=== PATIENT | male | born 1960 | race Caucasian/White ===

== ENCOUNTER 2016-10-03 19:21 | Emergency (ER) | payer OTHER ==
[~2016-10-03] VITALS: Ht 172.7 cm; Wt 130.0 kg
[~2016-10-03 19:21] MED LIST: ATOR80TA PO; CLIN1CAP6 PO; COUM10TA PO; GABA300C3 PO; LISI5 PO; NITR0.4S SL; PERC5TAB12 PO
[2016-10-03 19:25] VITALS: BP 137/95; PULSE 80; RESP 16; TEMP 96.7; O2SAT 96
[2016-10-03] MEDS ORDERED: IBUPROFEN 800 MG TAB PO ONE (21:45)
--- NOTE | 2016-10-03 21:48 | PD ---
HPI Chief Complaint: Fall Time Seen by Provider: 21:47 Travel History International Travel<30 days: No Contact w/Intl Traveler<30days: No Traveled to known affect area: No History of Present Illness HPI 55-year-old white male presents to emergency department for evaluation of a fall. The patient states that he was stepping down off a step stool last evening when he lost his balance falling back striking his head. He also states that he injured his right foot. He denies syncope. No nausea vomiting. No neck or back pain. No visual changes. He states that the pain is mild but becomes more severe when he attempts to bear weight on his right foot. PFSH Past Medical History Hx Anticoagulant Therapy: No Arthritis: No Asthma: Yes ( A CHILD) Anxiety: No Depression: No Heart Rhythm Problems: Yes (AFIB) Cancer: Yes (TESTICULAR) Cardiac Catheterization: Yes Cardiovascular Problems: Yes (MD x 3. AF. 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) Immunizations Current: No Migraines: No Myocardial Infarction: Yes (X3) Renal Failure: No Seizures: No Ulcer: No Tetanus Vaccination: > 5 Years Influenza Vaccination: Yes Past Surgical History Abdominal Surgery: No Appendectomy: Yes Body Medical Devices: AKIRA FILTER Cardiac Surgery: Yes Coronary Stent: Yes (X3) Ear Surgery: No Endocrine Surgery: No Eye Surgery: No Genitourinary Surgery: Yes (TESTICULAR CA-REMOVED R) Neurologic Surgery: No Oral Surgery: No Thoracic Surgery: Yes (IVC FILTER) Tonsillectomy: Yes Other Surgery: Yes (IVC FILTER) Family History Family Myocardial Infarction: No Social History Alcohol Use: Yes (OCCASIONAL) Tobacco Use: No Substance Use: No Allergies-Medications (Allergen,Severity, Reaction): Coded Allergies: Penicillin (Verified Allergy, Severe, 10/03/16) *MDRO Multi-Drug Resistant Organism (Verified Adverse Reaction, Unknown, ) 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 - 01/10/16 Reported Meds & Prescriptions Reported Meds & Active Scripts Active Lortab (Hydrocodone-Acetaminophen) 5-325 Mg Tab 1 Tab PO Q8HR PRN Percocet 5-325 mg (Oxycodone/Acetaminophen) 1 Tab 1-2 Tab PO Q6H PRN Prinivil 5 mg (Lisinopril) 5 Mg Tab 5 Mg PO DAILY 30 Days Reported Gabapentin 300 Mg Cap 300 Mg PO TID Coumadin 10 mg (Warfarin Sodium) Warfarin Sodium 10 mg Tab 10 Mg PO MOWEFR@16 Atorvastatin 80 mg (Atorvastatin Calcium) 80 Mg Tab 80 Mg PO HS Review of Systems Except as stated in HPI: all other systems reviewed are Neg Physical Exam Narrative GENERAL: Well-developed, well-nourished in no apparent distress. Nontoxic appearing. HEAD: Normocephalic, patient has abrasion to the right posterior occiput. EYES: Pupils equal round and reactive. Extraocular motions intact. No scleral icterus. No injection or drainage. ENT: Nose clear. Throat without erythema, tonsillar hypertrophy or exudate. Uvula midline. Airway patent. NECK: Trachea midline. Supple, nontender, moves head freely. No central bony tenderness or spasm. CARDIOVASCULAR: Regular rate and rhythm without murmurs, gallops, or rubs. RESPIRATORY: Clear to auscultation. Breath sounds equal bilaterally. No wheezes , rales, or rhonchi. GASTROINTESTINAL: Abdomen soft, non-tender, nondistended. No hepato-splenomegaly , or palpable masses. No guarding. EXTREMITIES: No clubbing, cyanosis, or edema. Examination of right lower extremity reveals pain to the anterior proximal forefoot. No pain in the distal forefoot. No pain in the toes, heel, Achilles, ankle. He has intact sensation with good distal pulses. No pain in the knee or hip. The left lower extremity as well as the upper extremities are without localizing bony tenderness or deformity. BACK: Nontender without deformity. No flank tenderness. NEUROLOGICAL: Awake, alert and oriented x 3 .Cranial nerves grossly intact. Motor and sensory grossly within normal limits. Normal speech. Data Data Last Documented VS Vital Signs Date Time Temp Pulse Resp B/P Pulse Ox O2 Delivery O2 Flow Rate FiO2 10/03/16 21:39 16 10/03/16 19:25 96.7 80 137/95 96 Room Air Orders Foot, Complete ([id number]) (10/03/16 21:45) Crutches (10/03/16 21:45) Ibuprofen (Motrin) (10/03/16 21:45) Ct Brain W/O Iv Contrast(Rout) (10/03/16 21:48) Splint Or Brace Apply/Monitor (10/03/16 22:28) Acetamin-Hydrocod 325-5 Mg ([place] 5-325 (10/03/16 22:30) MDM Medical Decision Making Medical Screen Exam Complete: Yes Emergency Medical Condition: Yes Medical Record Reviewed: Yes Interpretation(s) Last [address] 10/03/162147 Signed Impressions: Service Date/Time: Monday, October 03, 2016 22:10 - CONCLUSION: No acute disease. Gregorio Nolen MD Foot X-Ray 10/03/162144 Signed Impressions: Service Date/Time: Monday, October 03, 2016 21:54 - CONCLUSION: 1. No acute bony injury seen. 2. Calcaneal spur. Gregorio Nolen MD Differential Diagnosis MDM: High Differential diagnoses: Fracture, sprain, strain, dislocation, contusion, neurovascular injury Narrative Course X-ray of the right foot is negative for trauma. CT scan of the brain is negative for trauma. Patient is given Lortab 5 a grams by mouth, Porter wrap and crutches. Icepack applied. This is right ankle sprain, head contusion, fall Diagnosis Primary Impression: Head contusion Qualified Code: S00.03XA - Contusion of scalp, initial encounter Additional Impressions: Right ankle sprain Qualified Code: S93.421A - Sprain of deltoid ligament of right ankle, initial encounter Fall Qualified Code: W19.XXXA - Fall, initial encounter Patient Instructions: Narcotic given in the ED, General Instructions Additional Instructions: Rest. Elevation. Ice packs for the next 3 days. Porter wrap and crutches. No weight-bearing and then progress to weight-bearing as tolerated. Medications as directed Follow-up with an orthopedist or your doctor in one week. Return to the ER if any problems Med/Other Pt SpecificInfo: Prescription(s) given Scripts Hydrocodone-Acetaminophen (Lortab)5-325 Mg Tab1 Tab PO Q8HR PRN (PAIN) #20 TAB Prov:Janelle Leiva MD 10/03/16 Disposition: 01 DISCHARGE HOME Condition: Jann Ivory Oct 03, 2016 21:48
--- NOTE | 2016-10-03 22:18 | RADRPT ---
EXAM DATE/TIME: 10/03/2016 21:54 [facility] COMPARISON: No previous studies available for comparison. INDICATIONS : Right foot pain post fall yesterday. MEDICAL HISTORY : None. SURGICAL HISTORY : None. ENCOUNTER: Initial ACUITY: 1 day PAIN SCORE: 5/10 LOCATION: Right foot. FINDINGS: Three view examination of the right foot demonstrates no soft tissue swelling, dislocation, or fractu re. The tarsal bones appear intact. The interphalangeal and metatarsophalangeal joints are intact. The calcaneus is intact. There is a prominent calcaneal spur at the plantar aponeurosis attachment site. Bony mineralization is normal. CONCLUSION: 1. No acute bony injury seen. 2. Calcaneal spur. Gregorio Nolen MD on October 03, 2016 at 22:15 Board Certified Radiologist. This report was verified electronically.
--- NOTE | 2016-10-03 22:19 | RADRPT ---
EXAM DATE/TIME: 10/03/2016 22:10 [facility] COMPARISON: No previous studies available for comparison. INDICATIONS : Fall and hit head. RADIATION DOSE: 49.19 CTDIvol (mGy) MEDICAL HISTORY : None SURGICAL HISTORY : None. ENCOUNTER: Initial ACUITY: 1 day PAIN SCALE: 6/10 LOCATION: cranial TECHNIQUE: Multiple contiguous axial images were obtained of the head. Using automated exposure control and adj ustment of the mA and/or kV according to patient size, radiation dose was kept as low as reasonably a chievable to obtain optimal diagnostic quality images. FINDINGS: CEREBRUM: The ventricles are normal for age. No evidence of midline shift, mass lesion, hemorrhage or acute in farction. No extra-axial fluid collections are seen. POSTERIOR FOSSA: The cerebellum and brainstem are intact. The 4th ventricle is midline. The cerebellopontine angle i s unremarkable. EXTRACRANIAL: The visualized portion of the orbits is intact. SKULL: The calvaria is intact. No evidence of skull fracture. CONCLUSION: No acute disease. Gregorio Nolen MD on October 03, 2016 at 22:16 Board Certified Radiologist. This report was verified electronically.
[2016-10-03] MEDS ORDERED: HYDR-3533 PO (22:28)
[2016-10-03] MEDS ORDERED: ACETAMINOPHEN/HYDROcodone 325 MG/5 MG TAB PO ONE (22:30)
== END 2016-10-03 23:12 | disposition home or self-care (01) ==
LOC: NEPB 19:21
DX: S00.93XA Contusion of unspecified part of head, initial encounter (principal); S93.401A Sprain of unspecified ligament of right ankle, initial encounter; I48.91 Unspecified atrial fibrillation; I10 Essential (primary) hypertension; E11.9 Type 2 diabetes mellitus without complications; W10.8XXA Fall (on) (from) other stairs and steps, initial encounter
CPT/HCPCS: 70450; 73630; 99284; E0113

== ENCOUNTER 2016-11-13 13:57 | Inpatient (IN) | payer OTHER, MEDICARE ==
[~2016-11-13] VITALS: Ht 172.7 cm; Wt 125.1 kg
[~2016-11-13 13:57] MED LIST changes: -CLIN1CAP6 PO; +HYDR-3533 PO; -NITR0.4S SL
[2016-11-13 14:04] VITALS: BP 167/94; PULSE 99; RESP 18; TEMP 97.8; O2SAT 96
--- NOTE | 2016-11-13 16:22 | PD ---
HPI Chief Complaint: Skin Problem Time Seen by Provider: 16:16 Travel History International Travel<30 days: No Contact w/Intl Traveler<30days: No Traveled to known affect area: No History of Present Illness HPI Patient is a 56-year-old male presenting to emergency for evaluation of left lower leg skin lesions as well as skin changes to his groin and right hip and buttock. Patient states that his leg broke out 2 days ago. He reports issues with chronic ulcerations which he reports he usually can take care of himself however this is not significantly worse. He reports that he broke out on his right buttock and groin around the same time. He reports joint pain and just generally not feeling well. He denies any fever, chills, chest pain, shortness of breath, abdominal pain. He reports a femur fracture in 2000 and since that time he's had problems with his left leg. He also reports recently being diagnosed with type 2 diabetes but is not currently taking any medications. He also reports a history of DVT status post IVC filter placement several years ago. His primary care provider is Dr. Alexandra Polo. [facility] Past Medical History Hx Anticoagulant Therapy: No Arthritis: No Asthma: Yes ( A CHILD) Atrial Fibrillation: Yes Anxiety: No Depression: No Cancer: Yes (TESTICULAR) Cardiac Catheterization: Yes High Cholesterol: Yes Chemotherapy: No Chest Pain: Yes Congestive Heart Failure: No Cerebrovascular Accident: No Coronary Artery Disease: Yes Diabetes: Yes Diminished Hearing: No Deep Vein Thrombosis: Yes (MULTIPLE LLE; LAST ONE 2014) Endocrine: No Gastrointestinal Disorders: No GERD: No Genitourinary: No Hiatal Hernia: No Hypertension: Yes Immune Disorder: No Inguinal Hernia: Yes Implanted Vascular Access Dvce: Yes Kidney Stones: No Musculoskeletal: Yes (SCIATIC NERVE) Neurologic: No Psychiatric: No Reproductive: No Integumentary: Yes (H/O MRSA TO LLE) Immunizations Current: No Migraines: No Myocardial Infarction: Yes (X3) Renal Failure: No Seizures: No Ulcer: No Past Surgical History Abdominal Surgery: No Appendectomy: Yes Body Medical Devices: AKIRA FILTER Coronary Stent: Yes (X3) Ear Surgery: No Endocrine Surgery: No Eye Surgery: No Genitourinary Surgery: Yes (TESTICULAR CA-REMOVED R) Neurologic Surgery: No Oral Surgery: No Tonsillectomy: Yes Social History Alcohol Use: Yes (OCCASIONAL) Tobacco Use: No Substance Use: No Allergies-Medications (Allergen,Severity, Reaction): Coded Allergies: Penicillin (Verified Allergy, Severe, 11/13/16) *MDRO Multi-Drug Resistant Organism (Verified Adverse Reaction, Unknown, ) 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 - 01/10/16 Reported Meds & Prescriptions Reported Meds & Active Scripts Active Reported Lisinopril 5 Mg Tab 5 Mg PO DAILY Warfarin 10 Mg Tab 10 Mg PO DAILY Gabapentin 300 Mg Cap 300 Mg PO TID Atorvastatin (Atorvastatin Calcium) 80 Mg Tab 80 Mg PO HS Review of Systems Except as stated in HPI: all other systems reviewed are Neg General / Constitutional: No: Fever, Chills HENT: No: Headaches Cardiovascular: Positive: Edema, No: Chest Pain or Discomfort Respiratory: No: Shortness of Breath Gastrointestinal: No: Nausea, Vomiting, Abdominal Pain Musculoskeletal: Positive: Myalgias, Arthralgias, Limited ROM, Edema, Pain Skin: Positive Rash, Positive Itching, Positive Change in Pigmentation, Positive Lesions Neurologic: No: Dizziness, Syncope, Focal Abnormalities Physical Exam Narrative GENERAL: Obese, well-developed, alert male. Appears older than stated age. Resting comfortably in no acute distress. SKIN: Warm and dry. Superficial lesions to left lower leg, no exudate noted. Erythema noted with moderate edema. Patient has well demarcated, hyperpigmented rash to abdominal fold/groin as well as right hip and buttock. HEAD: Atraumatic. Normocephalic. EYES: Pupils equal and round. No scleral icterus. No injection or drainage. ENT: No nasal bleeding or discharge. Mucous membranes pink and moist. NECK: Trachea midline. No JVD. CARDIOVASCULAR: Regular rate and rhythm. No murmur appreciated. RESPIRATORY: No accessory muscle use. Clear to auscultation. Breath sounds equal bilaterally. GASTROINTESTINAL: Abdomen obese, soft, non-tender, nondistended. Hepatic and splenic margins not palpable. MUSCULOSKELETAL: No obvious deformities. No clubbing. No cyanosis. Edema to left lower extremity. NEUROLOGICAL: Awake and alert. No obvious cranial nerve deficits. Motor grossly within normal limits. Normal speech. PSYCHIATRIC: Appropriate mood and affect; insight and judgment normal. Data Data Last Documented VS Vital Signs Date Time Temp Pulse Resp B/P Pulse Ox O2 Delivery O2 Flow Rate FiO2 11/13/16 19:36 90 18 158/78 96 Room Air 11/13/16 14:04 97.8 Orders Wound Culture And Gram Stain (11/13/16 16:08) Complete Blood Count With Diff (11/13/16 16:08) Comprehensive Metabolic Panel (11/13/16 16:08) Prothrombin Time / Inr (Pt) (11/13/16 16:08) Act Partial Throm Time (Ptt) (11/13/16 16:08) Lactic Acid Sepsis Protocol (11/13/16 16:08) Blood Culture (11/13/16 16:08) Us Leg Venous Doppler (11/13/16 ) Vancomycin Inj (Vancomycin Inj) (11/13/16 18:30) Tibia/Fibula (Ap/Lat) (11/13/16 ) Admit Order (Ed Use Only) (11/13/16 19:47) Admit To Inpatient (11/13/16 ) Vital Signs (Adult) Q4H (11/13/16 19:46) Activity Oob Ad Nelly (11/13/16 19:46) Bedside Glucose VERONICA.AC&HS (11/13/16 19:46) Intake + Output VERONICA.QSHIFT (11/13/16 19:46) Diet 1800 Ada Cons Carb (11/14/16 Breakfast) Sodium Chloride 0.9% Flush (Ns Flush) (11/13/16 20:00) Sodium Chloride 0.9% Flush (Ns Flush) (11/13/16 21:00) Acetaminophen (Tylenol) (11/13/16 20:00) Ondansetron Inj (Zofran Inj) (11/13/16 20:00) Magnesium Hydroxide Liq (Milk Of Magnesi (11/13/16 20:00) Sennosides (Senokot) (11/13/16 20:00) Basic Metabolic Panel (Bmp) (11/14/16 06:00) Complete Blood Count With Diff (11/14/16 06:00) Case Management Consult (11/13/16 19:46) Naloxone Inj (Narcan Inj) (11/13/16 20:00) Inpatient Certification (11/13/16 ) Vancomycin Consult Pharmacy (Vancomycin (11/13/16 20:00) Labs Laboratory Tests Test 11/13/16 16:20 White Blood Count 6.4 TH/MM3 Red Blood Count 4.15 MIL/MM3 Hemoglobin 14.2 GM/DL Hematocrit 40.6 % Mean Corpuscular Volume 97.8 FL Mean Corpuscular Hemoglobin 34.1 PG Mean Corpuscular Hemoglobin 34.9 % Concent Red Cell Distribution Width 14.4 % Platelet Count 197 TH/MM3 Mean Platelet Volume 8.2 FL Neutrophils (%) (Auto) 68.0 % Lymphocytes (%) (Auto) 21.3 % Monocytes (%) (Auto) 6.1 % Eosinophils (%) (Auto) 3.3 % Basophils (%) (Auto) 1.3 % Neutrophils # (Auto) 4.3 TH/MM3 Lymphocytes # (Auto) 1.4 TH/MM3 Monocytes # (Auto) 0.4 TH/MM3 Eosinophils # (Auto) 0.2 TH/MM3 Basophils # (Auto) 0.1 TH/MM3 CBC Comment DIFF FINAL Differential Comment Prothrombin Time 10.7 SEC Prothromb Time International 1.0 RATIO Ratio Activated Partial 25.6 SEC Thromboplast Time Sodium Level 139 MEQ/L Potassium Level 3.9 MEQ/L Chloride Level 103 MEQ/L Carbon Dioxide Level 26.6 MEQ/L Anion Gap 9 MEQ/L Blood Urea Nitrogen 6 MG/DL Creatinine 0.94 MG/DL Estimat Glomerular Filtration 84 ML/MIN Rate Random Glucose 84 MG/DL Lactic Acid Level 1.5 mmol/L Calcium Level 8.6 MG/DL Total Bilirubin 0.4 MG/DL Aspartate Amino Transf 25 U/L (AST/SGOT) Alanine Aminotransferase 36 U/L (ALT/SGPT) Alkaline Phosphatase 93 U/L Total Protein 7.9 GM/DL Albumin 3.3 GM/DL MDM Medical Decision Making Medical Screen Exam Complete: Yes Emergency Medical Condition: Yes Interpretation(s) Vital Signs Date Time Temp Pulse Resp B/P Pulse Ox O2 Delivery O2 Flow Rate FiO2 11/13/16 14:04 97.8 99 18 167/94 96 Differential Diagnosis Cellulitis versus DVT versus psoriasis versus eczema versus tinea corporis versus sepsis versus other Narrative Course Patient is a 56-year-old male presenting to the emergency department for evaluation of left lower leg swelling, lesions and erythema as well as a rash to his groin and right leg and buttock. Wound culture obtained. Labs and imaging ordered. Workup initiated in triage, care of patient will be transferred to a provider when a medical bed is available. Thuy Eden [facility] Nov 13, 2016 16:22
[2016-11-13 16:33] LABS: AUTOMATED NEUTROPHIL # 4.3 TH/MM3 (1.8-7.7); BASOPHIL # 0.1 TH/MM3 (0-0.2); BASOPHIL % 1.3 % (0.0-2.0); EOSINOPHIL # 0.2 TH/MM3 (0-0.4); EOSINOPHIL % 3.3 % (0.0-4.0); HEMATOCRIT 40.6 % (39.0-51.0); HEMO FLAGS DIFF FINAL; LYMPH % 21.3 % (9.0-44.0); LYMPHOCYTE # 1.4 TH/MM3 (1.0-4.8); MEAN CELL VOLUME 97.8 FL (80.0-100.0); MEAN CORPUSCULAR HEMOGLOBIN 34.1 PG (27.0-34.0); MEAN CORPUSCULAR HGB CONC 34.9 % (32.0-36.0); MONO % 6.1 % (0.0-8.0); PLATELET COUNT 197 TH/MM3 (150-450); RED BLOOD COUNT 4.15 MIL/MM3 (4.50-5.90); RED CELL DISTRIBUTION WIDTH 14.4 % (11.6-17.2); WHITE BLOOD COUNT 6.4 TH/MM3 (4.0-11.0)
[2016-11-13 17:03] LABS: ALT (GPT) 36 U/L (12-78); ANION GAP 9 MEQ/L (5-15); AST (GOT) 25 U/L (15-37); BICARBONATE 26.6 MEQ/L (21.0-32.0); BLOOD UREA NITROGEN 6 MG/DL (7-18); CHLORIDE 103 MEQ/L (98-107); GLOMERULAR FILTRATION RATE 84 ML/MIN (>89); POTASSIUM 3.9 MEQ/L (3.5-5.1); SODIUM (NA) 139 MEQ/L (136-145)
[2016-11-13 17:04] LABS: ALKALINE PHOSPHATASE 93 U/L (45-117); TOTAL BILIRUBIN ADULT 0.4 MG/DL (0.2-1.0)
[2016-11-13 17:05] LABS: APTT (PATIENT) 25.6 SEC (24.3-30.1); PROTHROMBIN TIME - PATIENT 10.7 SEC (9.8-11.6)
[2016-11-13 18:25] VITALS: BP 156/90; PULSE 80; RESP 18; O2SAT 98
[2016-11-13] MEDS ORDERED: LISI-519 PO (18:25)
[2016-11-13] MEDS ORDERED: GABA300C5 PO (18:25)
[2016-11-13] MEDS ORDERED: WARF-22 PO (18:25)
[2016-11-13] MEDS ORDERED: ATOR1TAB18 PO (18:25)
[2016-11-13] MEDS ORDERED: VANCOMYCIN INJ 1,000 MG in SODIUM CHLOR 0.9% 250 ML INJ 250 ML IV ONE (18:30)
--- NOTE | 2016-11-13 18:33 | RADRPT ---
EXAM DATE/TIME: 11/13/2016 17:13 [facility] COMPARISON: US LEG LEFT VENOUS DOPPLER, April 05, 2015, 12:26. INDICATIONS : Left leg swelling and pain. MEDICAL HISTORY : Hypercholesterolemia. Deep venous thrombosis. Hypertension. Myocardial infarction x 3. Coronary ar lynnette disease. Afib. Asthma. Inguinal hernia. Diabetes. Testicular cancer. MRSA. SURGICAL HISTORY : Coronary artery stent. Tonsillectomy. Appendectomy. Right testicle removal. Left femur fracture repa ir. Left rotator cuff repair. IVC filter. ENCOUNTER: Subsequent ACUITY: >1 year PAIN SCORE: 6/10 LOCATION: Left leg. TECHNIQUE: Venous ultrasound of the leg was performed from the inguinal ligament to the proximal calf. Real-bebe e, color Doppler and spectral tracing, compression and augmentation techniques were used. FINDINGS: There is normal compressibility of the deep venous system from the inguinal region to the proximal ca lf. No echogenic clot is seen in the lumen of the common femoral, femoral, popliteal, and posterior tibial veins. There is a normal response of the venous system to proximal and distal augmentation an d respiration. There is edema in the soft tissues. CONCLUSION: No evidence of DVT. Asaf Trotter MD on November 13, 2016 at 18:32 Board Certified Radiologist. This report was verified electronically.
--- NOTE | 2016-11-13 19:16 | RADRPT ---
EXAM DATE/TIME: 11/13/2016 19:07 [facility] COMPARISON: No previous studies available for comparison. INDICATIONS : Left lower leg inflammation with seeping wound. MEDICAL HISTORY : Hypercholesterolemia. Deep venous thrombosis. Hypertension. Myocardial infarction x 3. Coronary a rtery disease. Afib. Asthma. Inguinal hernia. Diabetes. Testicular cancer. MRSA. SURGICAL HISTORY : Coronary artery stent. Tonsillectomy. Appendectomy. Right testicle removal. Left femur fracture repai r. Left rotator cuff repair. IVC filter. ENCOUNTER: Initial ACUITY: 2 days PAIN SCORE: 7/10 LOCATION: Left tib/fib FINDINGS: Two view examination of the left tibia demonstrates no evidence of fracture or dislocation. Bony min eralization is normal. The soft tissue structures are intact. CONCLUSION: No definite bony fracture or joint dislocation. Asaf Trotter MD on November 13, 2016 at 19:15 Board Certified Radiologist. This report was verified electronically.
--- NOTE | 2016-11-13 19:20 | PD ---
Data Data Last Documented VS Vital Signs Date Time Temp Pulse Resp B/P Pulse Ox O2 Delivery O2 Flow Rate FiO2 11/13/16 18:25 82 18 11/13/16 18:25 156/90 98 Room Air 11/13/16 14:04 97.8 Orders Wound Culture And Gram Stain (11/13/16 16:08) Complete Blood Count With Diff (11/13/16 16:08) Comprehensive Metabolic Panel (11/13/16 16:08) Prothrombin Time / Inr (Pt) (11/13/16 16:08) Act Partial Throm Time (Ptt) (11/13/16 16:08) Lactic Acid Sepsis Protocol (11/13/16 16:08) Blood Culture (11/13/16 16:08) Us Leg Venous Doppler (11/13/16 ) Vancomycin Inj (Vancomycin Inj) (11/13/16 18:30) Tibia/Fibula (Ap/Lat) (11/13/16 ) Labs Laboratory Tests Test 11/13/16 16:20 White Blood Count 6.4 TH/MM3 Red Blood Count 4.15 MIL/MM3 Hemoglobin 14.2 GM/DL Hematocrit 40.6 % Mean Corpuscular Volume 97.8 FL Mean Corpuscular Hemoglobin 34.1 PG Mean Corpuscular Hemoglobin 34.9 % Concent Red Cell Distribution Width 14.4 % Platelet Count 197 TH/MM3 Mean Platelet Volume 8.2 FL Neutrophils (%) (Auto) 68.0 % Lymphocytes (%) (Auto) 21.3 % Monocytes (%) (Auto) 6.1 % Eosinophils (%) (Auto) 3.3 % Basophils (%) (Auto) 1.3 % Neutrophils # (Auto) 4.3 TH/MM3 Lymphocytes # (Auto) 1.4 TH/MM3 Monocytes # (Auto) 0.4 TH/MM3 Eosinophils # (Auto) 0.2 TH/MM3 Basophils # (Auto) 0.1 TH/MM3 CBC Comment DIFF FINAL Differential Comment Prothrombin Time 10.7 SEC Prothromb Time International 1.0 RATIO Ratio Activated Partial 25.6 SEC Thromboplast Time Sodium Level 139 MEQ/L Potassium Level 3.9 MEQ/L Chloride Level 103 MEQ/L Carbon Dioxide Level 26.6 MEQ/L Anion Gap 9 MEQ/L Blood Urea Nitrogen 6 MG/DL Creatinine 0.94 MG/DL Estimat Glomerular Filtration 84 ML/MIN Rate Random Glucose 84 MG/DL Lactic Acid Level 1.5 mmol/L Calcium Level 8.6 MG/DL Total Bilirubin 0.4 MG/DL Aspartate Amino Transf 25 U/L (AST/SGOT) Alanine Aminotransferase 36 U/L (ALT/SGPT) Alkaline Phosphatase 93 U/L Total Protein 7.9 GM/DL Albumin 3.3 GM/DL MDM Supervised Visit with ALEXUS: Yes Narrative Course The patient was initially evaluated in triage by the PA and brought back to my pod a few hours after initial assessment. See her note for further details. Briefly this is a 56-year-old male with history of diabetes who presents for evaluation of left leg pain, swelling, redness, and ulcerations. The patient also reports right buttocks ulcerations, redness, and pain. Patient reports similar episodes in the past with MRSA. He denies IVDU. Pain is moderate, constant, worse with movement and palpation. CBC is unremarkable. CMP is unremarkable. Lactic acid is 1.5. Left lower extremity duplex is negative for DVT. Left tib-fib x-ray shows no free air. On physical exam the patient has significant edema to the left lower extremity with a large area of superficial ulceration surrounding by warmth and erythema as well as red streaks going up his left leg. Patient has small areas of ulcerations to his right buttocks which are surrounded by warmth and erythema as well. Given the extent of the patient's left leg infection as well as lymphangitis, he'll be admitted for IV antibiotic therapy. Case discussed with hospitalist Dr. Dick who will admit the patient to his service. Diagnosis Primary Impression: Left leg cellulitis Additional Impression: Diabetic foot infection Admitting Information Admitting Physician Requests: Admit Baldomero Quiñones MD Nov 13, 2016 19:20
[2016-11-13 19:36] VITALS: BP 158/78; PULSE 90; RESP 18; O2SAT 96
[2016-11-13] MEDS ORDERED: NALOXONE HCL 0.4 MG/ML AMP IV PRN (20:00)
[2016-11-13] MEDS ORDERED: SENNOSIDES 8.6 MG TAB PO PRN (20:00)
[2016-11-13] MEDS ORDERED: SODIUM CHLORIDE 0.9% FLUSH 5 ML FLUSH FLUSH PRN (20:00)
[2016-11-13] MEDS ORDERED: ONDANSETRON HCL 4 MG/2 ML VIAL IVP PRN (20:00)
[2016-11-13] MEDS ORDERED: MAGNESIUM HYDROXIDE SUSP 30 ML CUP PO PRN (20:00)
[2016-11-13] MEDS ORDERED: Vancomycin Consult Pharmacy 1 EA OTHER SCH (20:00)
[2016-11-13] MEDS ORDERED: ACETAMINOPHEN 325 MG TAB PO PRN (20:00)
[2016-11-13] MEDS ORDERED: VANCOMYCIN 1,000 MG/NS 250 ML IV ONE ×2 (20:15)
[2016-11-13 21:00] VITALS: BP 138/83; PULSE 85; RESP 16; TEMP 97.5; O2SAT 97
[2016-11-13] MEDS: SODIUM CHLORIDE 0.9% FLUSH 5 ML FLUSH FLUSH SCH (22:03)
--- NOTE | 2016-11-13 22:27 | HHI.HP ---
[facility] Service [facility] Primary Care Physician Non-Staff Admission Diagnosis left leg cellulitis, diabetic foot wound Diagnoses: Chief Complaint: Left leg edema, pain and redness Travel History International Travel<30 Days: No Contact w/Intl Traveler <30 Da: No Traveled to Known Affected Are: No History of Present Illness 56-year-old male with a history of questionable diabetes, hypertension, HI 3, CAD, A. fib, asthma and testicular cancer presented to the ED with complaints of left lower extremity edema, pain and redness since Sunday. Patient states his left leg is always bigger than his right ever since his femur surgery in 2000 but states it has increased and he began having open wounds on Sunday, draining fluid, and is causing him severe pain when ambulating. He is also complaining of a rash on his right groin that extends across his right thigh onto his right buttock that also began on Sunday, denies any itching. He states he does have chills but is unsure if he has had a fever. He denies any chest pain, short of breath, nausea or vomiting. Review of Systems Constitutional: COMPLAINS OF: Fever, Chills Eyes: DENIES: Blurred vision Respiratory: DENIES: Cough, Sputum production, Shortness of breath Cardiovascular: COMPLAINS OF: Lower Extremity Edema, DENIES: Chest pain, Dyspnea on Exertion Gastrointestinal: DENIES: Constipation, Diarrhea, Nausea, Vomiting Genitourinary: DENIES: Hematuria, Dysuria Musculoskeletal: COMPLAINS OF: Joint pain, DENIES: Back pain, Neck pain Integumentary: COMPLAINS OF: Rash, DENIES: Pruritus Hematologic/lymphatic: COMPLAINS OF: Lymphadenopathy Neurologic: DENIES: Headache, Localized weakness Past Family Social History Past Medical History Questionable diabetes Hypertension HI 3 CAD A. 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 - 01/10/16 Active Ordered Medications Current Medications Medications (Trade) Dose Ordered Sig/Maranda Route Start Time Stop Time Status Last Admin (NS Flush) 2 ml UNSCH PRN FLUSH 11/13/16 20:00 (NS Flush) 2 ml BID FLUSH 11/13/16 21:00 11/13/16 22:03 (Tylenol) 650 mg Q4H PRN PO 11/13/16 20:00 (Zofran Inj) 4 mg Q6H PRN IVP 11/13/16 20:00 (Milk Of Magnesia Liq) 30 ml Q12H PRN PO 11/13/16 20:00 (Senokot) 17.2 mg Q12H PRN PO 11/13/16 20:00 Naloxone HCl 0.4 mg 0.4 mg UNSCH PRN IV 11/13/16 20:00 Pharmacy Profile Note 0 ml @ 0 mls/hr UNSCH OTHER 11/13/16 20:00 (Vancomycin Inj/ NS 500 ml Inj) 517.5 ml @ 250 mls/hr Q12H IV 11/14/16 06:00 Miscellaneous Information SPECIFIC LAB TO BE ... ONCE ONCE XX 11/15/16 17:45 11/15/16 17:46 Family History Patient denies any family history of medical conditions including cardiac disease or diabetes. Social History Tobacco use: Denies Alcohol use: Socially Illicit drug use: Denies Physical Exam Vital Signs Vital Signs Date Time Temp Pulse Resp B/P Pulse Ox O2 Delivery O2 Flow Rate FiO2 11/13/16 21:00 97.5 85 16 138/83 97 11/13/16 19:36 90 18 158/78 96 Room Air 11/13/16 18:25 82 18 11/13/16 18:25 80 18 156/90 98 Room Air 11/13/16 14:04 97.8 99 18 167/94 96 Physical Exam GENERAL: This is a well-nourished, well-developed patient, in no apparent distress. SKIN: Left lower extremity edematous with open ulcers and erythema. Right groin /thigh and buttock excoriated fungal rash. HEAD: Atraumatic. Normocephalic. No temporal or scalp tenderness. EYES: Pupils equal round and reactive. Extraocular motions intact. ENT: Nose without bleeding, purulent drainage or septal hematoma. Airway patent. NECK: Trachea midline. No JVD CARDIOVASCULAR: Regular rate and rhythm without murmurs, gallops, or rubs. RESPIRATORY: Clear to auscultation. Breath sounds equal bilaterally. No wheezes , rales, or rhonchi. GASTROINTESTINAL: Abdomen soft, non-tender, nondistended. No hepato-splenomegaly , or palpable masses. No guarding. MUSCULOSKELETAL: Left lower extremity edematous. No calf tenderness. NEUROLOGICAL: Awake and alert. Motor and sensory grossly within normal limits. Normal speech. Laboratory Laboratory Tests Test 11/13/16 16:20 White Blood Count 6.4 Red Blood Count 4.15 Hemoglobin 14.2 Hematocrit 40.6 Mean Corpuscular Volume 97.8 Mean Corpuscular Hemoglobin 34.1 Mean Corpuscular Hemoglobin 34.9 Concent Red Cell Distribution Width 14.4 Platelet Count 197 Mean Platelet Volume 8.2 Neutrophils (%) (Auto) 68.0 Lymphocytes (%) (Auto) 21.3 Monocytes (%) (Auto) 6.1 Eosinophils (%) (Auto) 3.3 Basophils (%) (Auto) 1.3 Neutrophils # (Auto) 4.3 Lymphocytes # (Auto) 1.4 Monocytes # (Auto) 0.4 Eosinophils # (Auto) 0.2 Basophils # (Auto) 0.1 CBC Comment DIFF FINAL Differential Comment Prothrombin Time 10.7 Prothromb Time International 1.0 Ratio Activated Partial 25.6 Thromboplast Time Sodium Level 139 Potassium Level 3.9 Chloride Level 103 Carbon Dioxide Level 26.6 Anion Gap 9 Blood Urea Nitrogen 6 Creatinine 0.94 Estimat Glomerular Filtration 84 Rate Random Glucose 84 Lactic Acid Level 1.5 Calcium Level 8.6 Total Bilirubin 0.4 Aspartate Amino Transf 25 (AST/SGOT) Alanine Aminotransferase 36 (ALT/SGPT) Alkaline Phosphatase 93 Total Protein 7.9 Albumin 3.3 Date/Time Procedure Status Source Growth 11/13/16 16:20 Gram Stain Received Wound Leg Pending 11/13/16 16:20 Wound Culture Received Wound Leg Pending 11/13/16 16:20 Aerobic Blood Culture Received Blood Peripheral Pending 11/13/16 16:20 Anaerobic Blood Culture Received Blood Peripheral Pending Result Diagram: 11/13/16 1620 11/13/16 1620 Imaging Last Impressions Tibia/Fibula X-Ray 11/13/16 0000 Signed Impressions: Service Date/Time: Sunday, November 13, 2016 19:07 - CONCLUSION: No definite bony fracture or joint dislocation. Asaf Trotter MD Assessment and Plan Problem List: (1) Cellulitis ICD Code: L03.90 Status: Chronic (2) Atrial fibrillation, chronic ICD Code: I48.2 Status: Acute (3) Hypertension ICD Code: I10 Status: Chronic (4) Tinea corporis ICD Code: B35.4 Status: Acute Assessment and Plan 56-year-old male with a history of questionable diabetes, hypertension, HI 3, CAD, A. fib and testicular cancer presented to the ED with: Cellulitis, left lower extremity Images reviewed: Tib-fib x-ray shows no acute fracture, lower extremity ultrasound negative for DVT -Vancomycin IV with pharmacy consult for dosing -Contact isolation for history of MRSA -Wound and blood culture pending -Pain management with [place] and IV Morphine -Consult Wound care -Consult ID Tinea corporis: extensive involvement of the right groin/thigh and right buttock -Itraconazole PO daily -Keep area clean and dry Hypertension, chronic -Monitor vitals -Reorder home medications lisinopril -Heart healthy diet A. fib, chronic -Monitor telemetry -Continue home medications: Coumadin Questionable diabetes, rule out Labs: Blood glucose 84 -Check A1c -Accu-Cheks AC/HS DVT prophylaxis: Coumadin Written by Zoraida FAN, acting as scribe for Dr. Dick on 11/13/16 at 2143. All or portions of this note were transcribed by scribMITA Ziegler. I, Dr. Modesto Dick personally performed the history, physical exam, and medical decision making; and confirmed the accuracy of the information in the transcribed note. Authenticated by Dr. Modesto Dick on 11/14/16 at 02:03. Code Status Full Discussed Condition With Patient and RN Physician Certification 2 Midnight Certification Type: Admission for Inpatient Services Order for Inpatient Services The services are ordered in accordance with Medicare regulations or non- Medicare payer requirements, as applicable. In the case of services not specified as inpatient-only, they are appropriately provided as inpatient services in accordance with the 2-midnight benchmark. Estimated LOS (days): 3 days is the estimated time the patient will need to remain in the hospital, assuming treatment plan goals are met and no additional complications. Post-Hospital Plan: Not yet determined Zoraida Slade Nov 13, 2016 22:27 Modesto Dick MD Nov 14, 2016 02:00
[2016-11-13] MEDS ORDERED: MORPHINE SULFATE 4 MG/ML INJ IV PUSH PRN (22:45)
[2016-11-13] MEDS: ATORVASTATIN 80 MG TAB PO SCH (22:54)
[2016-11-13] MEDS: ACETAMINOPHEN/HYDROcodone 325 MG/10 MG TAB PO PRN (22:54)
[2016-11-13] MEDS ORDERED: DO NOT ADM ANY ANTICOAGULANT DRUGS XX PRN (23:00)
[2016-11-14] VITALS (9 sets, daily range): BP systolic 114–137; BP diastolic 59–76; PULSE 73–94; RESP 18–24; TEMP 97.7–98.7; O2SAT 93–96
[2016-11-14] MEDS: ACETAMINOPHEN/HYDROcodone 325 MG/10 MG TAB PO PRN ×3 (06:07→18:32)
[2016-11-14] MEDS: VANCOMYCIN INJ 1,750 MG in SODIUM CHLORID 0.9% 500 ML INJ 500 ML IV SCH ×2 (06:08→18:32)
[2016-11-14 08:03] LABS: AUTOMATED NEUTROPHIL # 4.2 TH/MM3 (1.8-7.7); BASOPHIL # 0.1 TH/MM3 (0-0.2); EOSINOPHIL # 0.2 TH/MM3 (0-0.4); EOSINOPHIL % 2.7 % (0.0-4.0); HEMATOCRIT 35.9 % (39.0-51.0); HEMO FLAGS DIFF FINAL; LYMPH % 18.5 % (9.0-44.0); LYMPHOCYTE # 1.1 TH/MM3 (1.0-4.8); MEAN CELL VOLUME 97.1 FL (80.0-100.0); MEAN CORPUSCULAR HEMOGLOBIN 33.7 PG (27.0-34.0); MEAN CORPUSCULAR HGB CONC 34.7 % (32.0-36.0); MONO % 4.6 % (0.0-8.0); NEUT % 73.2 % (16.0-70.0); PLATELET COUNT 185 TH/MM3 (150-450); RED BLOOD COUNT 3.69 MIL/MM3 (4.50-5.90); RED CELL DISTRIBUTION WIDTH 14.6 % (11.6-17.2); WHITE BLOOD COUNT 5.7 TH/MM3 (4.0-11.0)
[2016-11-14 08:27] LABS: BICARBONATE 26.1 MEQ/L (21.0-32.0); POTASSIUM 3.6 MEQ/L (3.5-5.1)
[2016-11-14] MEDS: LISINOPRIL 5 MG TAB PO SCH (09:40)
[2016-11-14] MEDS: ITRACONAZOLE 100 MG CAP PO SCH (09:40)
[2016-11-14] MEDS: GABAPENTIN 300 MG CAP PO SCH ×3 (09:40→18:32)
[2016-11-14] MEDS: SODIUM CHLORIDE 0.9% FLUSH 5 ML FLUSH FLUSH SCH ×2 (09:41→20:28)
--- NOTE | 2016-11-14 13:14 | HHI.PR ---
Subjective Remarks 56 years old male, obese, states historyb of atrial fibrillation and blood clot on the left leg states he has been dealing with this recurrent left leg infection on and off for years baseline ambulates with a cane - history of shattered femur non compliance with medications was told he is borderline diabetic grouchy, + pain left leg, no fever or chills denied any nausea or vomiting Objective Vitals Vital Signs Date Time Temp Pulse Resp B/P Pulse Ox O2 Delivery O2 Flow Rate FiO2 11/14/16 09:39 73 11/14/16 08:00 97.7 74 18 114/59 95 11/14/16 04:11 97.9 80 24 137/66 96 11/14/16 04:00 97.9 80 24 137/66 96 11/14/16 03:00 85 11/14/16 00:16 98.7 94 20 116/67 93 11/13/16 21:00 97.5 85 16 138/83 97 11/13/16 19:36 90 18 158/78 96 Room Air 11/13/16 18:25 82 18 11/13/16 18:25 80 18 156/90 98 Room Air 11/13/16 14:04 97.8 99 18 167/94 96 I/O 11/13/16 11/13/16 11/13/16 11/14/16 11/14/16 11/14/16 07:00 15:00 23:00 07:00 15:00 23:00 Intake Total 320 ml 1180 ml Balance 320 ml 1180 ml Intake Oral 320 ml 480 ml IV Total 700 ml # Voids 1 3 Result Diagram: 11/14/16 0708 11/14/16 0708 Imaging Last Impressions Tibia/Fibula X-Ray 11/13/16 0000 Signed Impressions: Service Date/Time: Sunday, November 13, 2016 19:07 - CONCLUSION: No definite bony fracture or joint dislocation. Asaf Trotter MD Objective Remarks obese, awake and alert, NAD anicteric lungs no rales or wheezes regular rhythm/sinus on exam abdomen- globular soft, + bowel sounds extremities- Left LE- scab wounds some wounds with minimal light serosanguinous fluid, ++DP , no limitation in ROM A/P Problem List: (1) Cellulitis ICD Code: L03.90 Status: Chronic (2) Atrial fibrillation, chronic ICD Code: I48.2 Status: Acute (3) Hypertension ICD Code: I10 Status: Chronic (4) Tinea corporis ICD Code: B35.4 Status: Acute Assessment and Plan 56-year-old male with a history of questionable diabetes, hypertension, [place] 3, CAD, A. fib and testicular cancer presented to the ED with: Cellulitis, left lower extremity-Recurrent by history - cultures growing S. aureus- Tib-fib x-ray shows no acute fracture, lower extremity ultrasound negative for DVT -Vancomycin IV with pharmacy consult for dosing -Contact isolation for history of MRSA blood culture pending -Pain management with [place] and IV Morphine -Consult Wound care -ID service consulted Tinea corporis: extensive involvement of the right groin/thigh and right buttock -Itraconazole PO daily -Keep area clean and dry History of CAD S/P LA Hypertension, chronic History of A. fib, chronic- sinus on exam History of DVT per patient continue on Lisinopril -Monitor telemetry -Continue home medications: Coumadin. Lovenox- INR subtherapeutic glucose Intolerance Obesity - BMI 41 Labs: Blood glucose 84 -Check A1c -Accu-Cheks AC/HS DVT prophylaxis: Coumadin Tamiko Gomez MD Nov 14, 2016 13:14 Tamiko Gomez MD Nov 14, 2016 13:14
[2016-11-14 16:57] LABS: HEMOGLOBIN A1a 0.9 %; HEMOGLOBIN A1b 0.8 %; HEMOGLOBIN Ao 85.7 %; HEMOGLOBIN P3 3.5 %
--- NOTE | 2016-11-14 17:16 | PD.ID.CON ---
History of Present Illness Service ID Consult Requested By Reason for Consult Evaluation and Mment of left LLE. Primary Care Physician Non-Staff Diagnoses: History of Present Illness Mr. Cardona is a 56 y/o CM with a history of Morbid Obesity with BMI 41.9 kg/m2, questionable diabetes, hypertension, [place] 3, CAD, A. fib, asthma and testicular cancer, recurrent LE cellulitis after trauma many years back. Reports history suggestive of presented to the ED with complaints of left lower extremity edema , pain and redness since Sunday. Patient states his left leg is always bigger than his right ever since his femur surgery in 2000. Patient reports that he had left LE blisters that eventually bust open and the open wounds started draining fluid, and is causing him severe pain when ambulating. He is also complaining of a rash on his right groin that extends across his right thigh onto his right buttock that also began on Sunday, denies any itching. He states he does have chills but is unsure if he has had a fever. He denies any chest pain, short of breath, nausea or vomiting. Patient reports h/o MRSA bursitis of left knee. He reports recurrent LE cellulitis. Patient reports having seen many ID physicians over the years. ID is consulted for evaluation and Mment of LLE cellulitis. Cultures from wound growing staph ID pending. Patient on Vanco IV. Review of Systems ROS Limitations: Poor Historian Constitutional: DENIES: Diaphoretic episodes, Fatigue, Fever, Weight gain, Weight loss, Chills, Dizziness, Change in appetite, Night Sweats Endocrine: DENIES: Heat/cold intolerance, Polydipsia, Polyuria, Polyphagia Eyes: DENIES: Blurred vision, Diplopia, Eye inflammation, Eye pain, Vision loss , Photosensitivity, Double Vision Ears, nose, mouth, throat: DENIES: Tinnitus, Hearing loss, Vertigo, Nasal discharge, Oral lesions, Throat pain, Hoarseness, Ear Pain, Running Nose, Epistaxis, Sinus Pain, Toothache, Odynophagia Respiratory: DENIES: Apneas, Cough, Snoring, Wheezing, Hemoptysis, Sputum production, Shortness of breath Cardiovascular: DENIES: Chest pain, Palpitations, Syncope, Dyspnea on Exertion , PND, Lower Extremity Edema, Orthopnea, Claudication Gastrointestinal: DENIES: Abdominal pain, Black stools, Bloody stools, Constipation, Diarrhea, Nausea, Vomiting, Difficulty Swallowing, Anorexia Genitourinary: DENIES: Sexual dysfunction, Urinary frequency, Urinary incontinence, Urgency, Hematuria, Dysuria, Nocturia, Penile Discharge, Testicular Pain, Testicular Swelling Musculoskeletal: DENIES: Joint pain, Muscle aches, Stiffness, Joint Swelling, Back pain, Neck pain Integumentary: DENIES: Abnormal pigmentation, Nail changes, Pruritus, Rash Hematologic/lymphatic: DENIES: Bruising, Lymphadenopathy Immunologic/allergic: DENIES: Eczema, Urticaria Neurologic: DENIES: Abnormal gait, Headache, Localized weakness, Paresthesias, Seizures, Speech Problems, Tremor, Poor Balance Psychiatric: DENIES: Anxiety, Confusion, Mood changes, Depression, Hallucinations, Agitation, Suicidal Ideation, Homicidal Ideation, Delusions Except as stated in HPI: all other systems reviewed are Neg Past Family Social History Allergies: Coded Allergies: Penicillin (Verified Allergy, Severe, 11/13/16) *MDRO Multi-Drug Resistant Organism (Verified Adverse Reaction, Unknown, ) MRSA Knee 2007 MRSA PCR (nares) positive - 01/10/16 Past Medical History Questionable diabetes Hypertension [place] 3 CAD A. fib Asthma Testicular cancer Morbid Obesity. Past Surgical History Tonsillectomy Appendectomy Right testicular removed Left femur repair Left rotator cuff repair IVC filter Hernia repair Reported Medications Reported Meds & Active Scripts Active Reported Lisinopril 5 Mg Tab 5 Mg PO DAILY Warfarin 10 Mg Tab 10 Mg PO DAILY Gabapentin 300 Mg Cap 300 Mg PO TID Atorvastatin (Atorvastatin Calcium) 80 Mg Tab 80 Mg PO HS Active Ordered Medications Current Medications Medications (Trade) Dose Ordered Sig/Maranda Route Start Time Stop Time Status Last Admin (NS Flush) 2 ml UNSCH PRN FLUSH 11/13/16 20:00 (NS Flush) 2 ml BID FLUSH 11/13/16 21:00 11/14/16 09:41 (Tylenol) 650 mg Q4H PRN PO 11/13/16 20:00 (Zofran Inj) 4 mg Q6H PRN IVP 11/13/16 20:00 (Milk Of Magnesia Liq) 30 ml Q12H PRN PO 11/13/16 20:00 (Senokot) 17.2 mg Q12H PRN PO 11/13/16 20:00 Naloxone HCl 0.4 mg 0.4 mg UNSCH PRN IV 11/13/16 20:00 Pharmacy Profile Note 0 ml @ 0 mls/hr UNSCH OTHER 11/13/16 20:00 (Vancomycin Inj/ NS 500 ml Inj) 517.5 ml @ 250 mls/hr Q12H IV 11/14/16 06:00 11/14/16 06:08 Miscellaneous Information SPECIFIC LAB TO BE FELICIA... ONCE ONCE XX 11/15/16 17:45 11/15/16 17:46 (Lipitor) 80 mg HS PO 11/13/16 22:15 11/13/16 22:54 (Neurontin) 300 mg TID PO 11/14/16 09:00 11/14/16 13:10 (Prinivil) 5 mg DAILY PO 11/14/16 09:00 11/14/16 09:40 (Coumadin) 10 mg DAILY@1600 PO 11/14/16 16:00 ([place] 5-325 Mg) 1 tab Q6H PRN PO 11/13/16 22:45 ([place] 10-325 Mg) 1 tab Q6H PRN PO 11/13/16 22:45 11/14/16 13:10 (Morphine Inj) 3 mg Q3H PRN IV PUSH 11/13/16 22:45 Miscellaneous Information ALL NURSING DEPARTME... UNSCH PRN XX 11/13/16 23:00 11/14/16 22:59 (Sporanox) 200 mg DAILY PO 11/14/16 09:00 11/14/16 09:40 Family History reviewed and NC per patient description. Social History Tobacco use: Denies Alcohol use: Socially Illicit drug use: Denies Physical Exam Vital Signs Vital Signs Date Time Temp Pulse Resp B/P Pulse Ox O2 Delivery O2 Flow Rate FiO2 11/14/16 16:00 98.4 76 20 122/71 94 11/14/16 12:00 98.6 77 20 135/66 96 11/14/16 09:39 73 11/14/16 08:00 97.7 74 18 114/59 95 11/14/16 04:11 97.9 80 24 137/66 96 11/14/16 04:00 97.9 80 24 137/66 96 11/14/16 03:00 85 11/14/16 00:16 98.7 94 20 116/67 93 11/13/16 21:00 97.5 85 16 138/83 97 11/13/16 19:36 90 18 158/78 96 Room Air 11/13/16 18:25 82 18 11/13/16 18:25 80 18 156/90 98 Room Air Physical Exam GENERAL: Obese CM patient, in no apparent distress. SKIN: No rashes. HEAD: Atraumatic. Normocephalic. No temporal or scalp tenderness. EYES: Pupils equal round and reactive. Extraocular motions intact. No scleral icterus. No injection or drainage. ENT: Nose without bleeding, purulent drainage or septal hematoma. Throat without erythema, tonsillar hypertrophy or exudate. Uvula midline. Airway patent. NECK: Trachea midline. Supple, nontender, no meningeal signs. CARDIOVASCULAR: HS audible. RESPIRATORY: Clear to auscultation. Breath sounds equal bilaterally. GASTROINTESTINAL: Abdomen soft, non-tender, nondistended. MUSCULOSKELETAL: Bilateral LE with chronic skin changes. Left LE with erythema, few ulcerations noted with erythema. No active discharged. Chronic non pitting edema noted. NEUROLOGICAL: Awake and alert. Grossly non focal Psych: cooperative IV line sites with no e.o infection. Laboratory Laboratory Tests Test 11/14/16 07:08 White Blood Count 5.7 Red Blood Count 3.69 Hemoglobin 12.4 Hematocrit 35.9 Mean Corpuscular Volume 97.1 Mean Corpuscular Hemoglobin 33.7 Mean Corpuscular Hemoglobin 34.7 Concent Red Cell Distribution Width 14.6 Platelet Count 185 Mean Platelet Volume 8.6 Neutrophils (%) (Auto) 73.2 Lymphocytes (%) (Auto) 18.5 Monocytes (%) (Auto) 4.6 Eosinophils (%) (Auto) 2.7 Basophils (%) (Auto) 1.0 Neutrophils # (Auto) 4.2 Lymphocytes # (Auto) 1.1 Monocytes # (Auto) 0.3 Eosinophils # (Auto) 0.2 Basophils # (Auto) 0.1 CBC Comment DIFF FINAL Differential Comment Sodium Level 138 Potassium Level 3.6 Chloride Level 103 Carbon Dioxide Level 26.1 Anion Gap 9 Blood Urea Nitrogen 8 Creatinine 0.86 Estimat Glomerular Filtration 93 Rate Random Glucose 108 Calcium Level 8.2 Date/Time Procedure Status Source Growth 11/13/16 16:20 Gram Stain - Final Resulted Wound Leg 11/13/16 16:20 Wound Culture - Preliminary Resulted Staphylococcus Aureus 11/13/16 16:20 Aerobic Blood Culture - Preliminary Resulted Blood Peripheral NO GROWTH IN 1 DAY 11/13/16 16:20 Anaerobic Blood Culture - Preliminary Resulted Blood Peripheral NO GROWTH IN 1 DAY 11/13/16 16:08 Gram Stain Received Wound Leg Pending 11/13/16 16:08 Wound Culture Received Wound Leg Pending Result Diagram: 11/14/16 0708 11/14/16 0708 Imaging Last Impressions Tibia/Fibula X-Ray 11/13/16 0000 Signed Impressions: Service Date/Time: Sunday, November 13, 2016 19:07 - CONCLUSION: No definite bony fracture or joint dislocation. Asaf Trotter MD Lower Extremity Ultrasound 11/13/16 0000 Signed Impressions: Service Date/Time: Sunday, November 13, 2016 17:13 - CONCLUSION: No evidence of DVT. Asaf Trotter MD Assessment and Plan Assessment and Plan LLE cellulitis with blisters that bust and caused wounds ? MSSA vs MRSA ID pending. Await susceptibility. Recurrent LLE cellulitis ? Lymphedema from trauma many years back. Tinea corporis vs [place] infection in groin or both. h/o MRSA bursitis needing surgical debridement in past. Poor hygiene. Patient does not bathe every day. Counseled importance given fungal infections. Recs Continue Vanco IV (target 10-15) Continue Itraconazole recommend 7 day treatment. Start Miconazole local application to groin and buttock area. Follow cultures Follow clinically. Await susceptibility hopefully home once cultures final in am. Marisol Mg MD Nov 14, 2016 17:16
[2016-11-14] MEDS: WARFARIN SOD 10 MG TAB PO SCH (18:32)
[2016-11-14] MEDS: ATORVASTATIN 80 MG TAB PO SCH (20:28)
[2016-11-14] MEDS: MICONAZOLE NITRATE 2% CREAM 15 GM TOPICAL SCH (20:47)
[2016-11-15 00:29] VITALS: BP 104/56; PULSE 70; RESP 20; TEMP 98; O2SAT 95
[2016-11-15] MEDS: ACETAMINOPHEN/HYDROcodone 325 MG/10 MG TAB PO PRN (03:05)
[2016-11-15] MEDS: VANCOMYCIN INJ 1,750 MG in SODIUM CHLORID 0.9% 500 ML INJ 500 ML IV SCH ×2 (06:08→20:40)
[2016-11-15 08:00] VITALS: BP 112/64; PULSE 64; RESP 18; TEMP 98; O2SAT 95
[2016-11-15 09:05] VITALS: PULSE 63
[2016-11-15] MEDS: ITRACONAZOLE 100 MG CAP PO SCH (09:05)
[2016-11-15] MEDS: LISINOPRIL 5 MG TAB PO SCH (09:05)
[2016-11-15] MEDS: SODIUM CHLORIDE 0.9% FLUSH 5 ML FLUSH FLUSH SCH ×2 (09:05→20:40)
[2016-11-15] MEDS: GABAPENTIN 300 MG CAP PO SCH ×3 (09:05→18:46)
[2016-11-15] MEDS: MICONAZOLE NITRATE 2% CREAM 15 GM TOPICAL SCH ×2 (09:06→20:44)
[2016-11-15 12:00] VITALS: BP 117/70; PULSE 72; RESP 20; TEMP 97.3; O2SAT 94
--- NOTE | 2016-11-15 12:38 | HHI.PR ---
Subjective Remarks no complains afebrile no leg pain, pruritus Objective Vitals Vital Signs Date Time Temp Pulse Resp B/P Pulse Ox O2 Delivery O2 Flow Rate FiO2 11/15/16 09:05 63 11/15/16 00:29 98.0 70 20 104/56 95 11/14/16 20:00 98.1 81 20 122/76 93 11/14/16 20:00 74 11/14/16 16:00 98.4 76 20 122/71 94 I/O 11/14/16 11/14/16 11/14/16 11/15/16 11/15/16 11/15/16 07:00 15:00 23:00 07:00 15:00 23:00 Intake Total 1180 ml 1000 ml 360 ml 360 ml Output Total 1 ml Balance 1180 ml 1000 ml 359 ml 360 ml Intake Oral 480 ml 1000 ml 360 ml 360 ml IV Total 700 ml Output Stool Total 1 ml # Voids 3 3 2 2 # Bowel Movements 0 Result Diagram: 11/14/16 0708 11/14/16 0708 Imaging Last Impressions Tibia/Fibula X-Ray 11/13/16 0000 Signed Impressions: Service Date/Time: Sunday, November 13, 2016 19:07 - CONCLUSION: No definite bony fracture or joint dislocation. Asaf Trotter MD Lower Extremity Ultrasound 11/13/16 0000 Signed Impressions: Service Date/Time: Sunday, November 13, 2016 17:13 - CONCLUSION: No evidence of DVT. Asaf Trotter MD Objective Remarks obese, awake and alert, NAD anicteric lungs no rales or wheezes regular rhythm/sinus on exam abdomen- globular soft, + bowel sounds extremities- + groin wounds, Left LE- scab wounds some wounds with minimal light serosanguinous fluid, ++DP , no limitation in ROM A/P Problem List: (1) Cellulitis ICD Code: L03.90 Status: Chronic (2) Atrial fibrillation, chronic ICD Code: I48.2 Status: Acute (3) Hypertension ICD Code: I10 Status: Chronic (4) Tinea corporis ICD Code: B35.4 Status: Acute Assessment and Plan 56-year-old male with a history of questionable diabetes, hypertension, [place] 3, CAD, A. fib and testicular cancer presented to the ED with: Cellulitis, left lower extremity-Recurrent by history - cultures growing S. aureus-+ gram negative Tib-fib x-ray shows no acute fracture, lower extremity ultrasound negative for DVT -Vancomycin IV with pharmacy consult for dosing -Contact isolation for history of MRSA. Start Levaquin po - sensitivity still pending -Pain management with [place] and IV Morphine - Dr. Haritha park Tinea corporis: extensive involvement of the right groin/thigh and right buttock -Itraconazole PO daily , topical antifungal -Keep area clean and dry We are monitoring closely clinically to make sure not to develop into necrotizing fasciitis History of CAD S/P [place] Hypertension, chronic History of A. fib, chronic- sinus on exam History of DVT per patient continue on Lisinopril -Monitor telemetry -Continue home medications: Coumadin. Lovenox- INR subtherapeutic glucose Intolerance Obesity - BMI 41 Labs: Blood glucose 84 -Check A1c -Accu-Cheks AC/HS DVT prophylaxis: Coumadin Tamiko Gomez MD Nov 15, 2016 12:38
[2016-11-15] MEDS: ACETAMINOPHEN/HYDROcodone 325 MG/5 MG TAB PO PRN (15:18)
[2016-11-15] MEDS: LEVOFLOXACIN 500 MG TAB PO SCH (15:18)
[2016-11-15] MEDS: WARFARIN SOD 10 MG TAB PO SCH (15:18)
[2016-11-15 15:42] LABS: PROTHROMBIN TIME - PATIENT 11.4 SEC (9.8-11.6)
[2016-11-15 16:00] VITALS: BP 115/65; PULSE 80; RESP 20; TEMP 97.2; O2SAT 94
[2016-11-15] MEDS ORDERED: PHARMACY ORDERED LAB XX ONE (17:45)
[2016-11-15] MEDS ORDERED: MORPHINE SULFATE 4 MG/ML INJ IV PUSH PRN (18:00)
[2016-11-15] MEDS ORDERED: WARFARIN SOD 5 MG TAB PO ONE (18:15)
--- NOTE | 2016-11-15 19:14 | HHI.IDPN ---
Subjective Subjective Remarks Mr. Cardona is a 56 y/o CM with a history of Morbid Obesity with BMI 41.9 kg/m2, questionable diabetes, hypertension, [place] 3, CAD, A. fib, asthma and testicular cancer, recurrent LE cellulitis after trauma many years back. Reports history suggestive of presented to the ED with complaints of left lower extremity edema , pain and redness since Sunday. Patient states his left leg is always bigger than his right ever since his femur surgery in 2000. Patient reports that he had left LE blisters that eventually bust open and the open wounds started draining fluid, and is causing him severe pain when ambulating. He is also complaining of a rash on his right groin that extends across his right thigh onto his right buttock that also began on Sunday, denies any itching. He states he does have chills but is unsure if he has had a fever. He denies any chest pain, short of breath, nausea or vomiting. Patient reports h/o MRSA bursitis of left knee. He reports recurrent LE cellulitis. Patient reports having seen many ID physicians over the years. ID is consulted for evaluation and Mment of LLE cellulitis. Cultures from wound growing staph ID pending. Patient on Vanco IV. Overnight events reviewed No fever No rash No diarrhea Antibiotics Vanco IV Levaquin oral. Lines Line sites with no e.o infection Past Medical History reviewed Allergies: Coded Allergies: Penicillin (Verified Allergy, Severe, 11/13/16) *MDRO Multi-Drug Resistant Organism (Verified Adverse Reaction, Unknown, ) 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 - 01/10/16 Objective . Vital Signs Date Time Temp Pulse Resp B/P Pulse Ox O2 Delivery O2 Flow Rate FiO2 11/15/16 16:00 97.2 80 20 115/65 94 11/15/16 12:00 97.3 72 20 117/70 94 11/15/16 09:05 63 11/15/16 08:00 98.0 64 18 112/64 95 11/15/16 00:29 98.0 70 20 104/56 95 11/14/16 20:00 98.1 81 20 122/76 93 11/14/16 20:00 74 11/14/16 11/14/16 11/15/16 15:00 23:00 07:00 Intake Total 1000 ml 360 ml 360 ml Output Total 1 ml Balance 1000 ml 359 ml 360 ml Intake Oral 1000 ml 360 ml 360 ml Output Stool Total 1 ml # Voids 3 2 2 # Bowel Movements 0 . Laboratory Tests Test 11/14/16 07:08 White Blood Count 5.7 TH/MM3 Red Blood Count 3.69 MIL/MM3 Hemoglobin 12.4 GM/DL Hematocrit 35.9 % Mean Corpuscular Volume 97.1 FL Mean Corpuscular Hemoglobin 33.7 PG Mean Corpuscular Hemoglobin 34.7 % Concent Red Cell Distribution Width 14.6 % Platelet Count 185 TH/MM3 Mean Platelet Volume 8.6 FL Neutrophils (%) (Auto) 73.2 % Lymphocytes (%) (Auto) 18.5 % Monocytes (%) (Auto) 4.6 % Eosinophils (%) (Auto) 2.7 % Basophils (%) (Auto) 1.0 % Neutrophils # (Auto) 4.2 TH/MM3 Lymphocytes # (Auto) 1.1 TH/MM3 Monocytes # (Auto) 0.3 TH/MM3 Eosinophils # (Auto) 0.2 TH/MM3 Basophils # (Auto) 0.1 TH/MM3 CBC Comment DIFF FINAL Differential Comment Laboratory Tests Test 11/14/16 07:08 Sodium Level 138 MEQ/L Potassium Level 3.6 MEQ/L Chloride Level 103 MEQ/L Carbon Dioxide Level 26.1 MEQ/L Anion Gap 9 MEQ/L Blood Urea Nitrogen 8 MG/DL Creatinine 0.86 MG/DL Estimat Glomerular Filtration 93 ML/MIN Rate Random Glucose 108 MG/DL Hemoglobin A1c 5.6 % Calcium Level 8.2 MG/DL Microbiology Date/Time Procedure Status Source Growth 11/13/16 16:08 Gram Stain Received Wound Leg Pending 11/13/16 16:08 Wound Culture Received Wound Leg Pending 11/13/16 16:15 Aerobic Blood Culture - Preliminary Resulted Blood Peripheral NO GROWTH IN 2 DAYS 11/13/16 16:15 Anaerobic Blood Culture - Preliminary Resulted Blood Peripheral NO GROWTH IN 2 DAYS 11/13/16 16:20 Aerobic Blood Culture - Preliminary Resulted Blood Peripheral NO GROWTH IN 2 DAYS 11/13/16 16:20 Anaerobic Blood Culture - Preliminary Resulted Blood Peripheral NO GROWTH IN 2 DAYS 11/13/16 16:20 Gram Stain - Final Resulted Wound Leg 11/13/16 16:20 Wound Culture - Preliminary Resulted Staphylococcus Aureus Gram Negative [facility] Last Impressions Tibia/Fibula X-Ray 11/13/16 0000 Signed Impressions: Service Date/Time: Sunday, November 13, 2016 19:07 - CONCLUSION: No definite bony fracture or joint dislocation. Asaf Trotter MD Lower Extremity Ultrasound 11/13/16 0000 Signed Impressions: Service Date/Time: Sunday, November 13, 2016 17:13 - CONCLUSION: No evidence of DVT. Asaf Trotter MD Physical Exam GENERAL: Obese CM patient, in no apparent distress. SKIN: No rashes. HEAD: Atraumatic. Normocephalic. No temporal or scalp tenderness. EYES: Pupils equal round and reactive. Extraocular motions intact. No scleral icterus. No injection or drainage. ENT: Nose without bleeding, purulent drainage or septal hematoma. Throat without erythema, tonsillar hypertrophy or exudate. Uvula midline. Airway patent. NECK: Trachea midline. Supple, nontender, no meningeal signs. CARDIOVASCULAR: HS audible. RESPIRATORY: Clear to auscultation. Breath sounds equal bilaterally. GASTROINTESTINAL: Abdomen soft, non-tender, nondistended. MUSCULOSKELETAL: Bilateral LE with chronic skin changes. Left LE with erythema, few ulcerations noted with erythema. No active discharged. Chronic non pitting edema noted. Groin with cellulitic changes and fungal intertrigo. NEUROLOGICAL: Awake and alert. Grossly non focal Psych: cooperative IV line sites with no e.o infection. Assessment & Plan Remarks LLE cellulitis with blisters that bust and caused wounds ? MSSA vs MRSA ID pending. Await susceptibility. Recurrent LLE cellulitis ? Lymphedema from trauma many years back. Tinea corporis vs Camelia infection in groin or both. h/o MRSA bursitis needing surgical debridement in past. Poor hygiene. Patient does not bathe every day. Counseled importance given fungal infections. Recs Continue Vanco IV (target 10-15) Follow Staph susceptibility. Continue Levaquin for now. Continue Itraconazole recommend 7 day treatment. Continue Miconazole local application to groin and buttock area. Follow cultures Follow clinically. Await susceptibility hopefully home once cultures final in am. Marisol Mg MD Nov 15, 2016 19:13
[2016-11-15 20:00] VITALS: BP 118/59; PULSE 73; PULSE 81; RESP 18; TEMP 97.9; O2SAT 95
--- NOTE | 2016-11-15 20:07 | EKG ---
Date Performed: 11/14/2016 Time Performed: 18:26:14 PTAGE: 56 years EKG: Sinus rhythm LOW QRS VOLTAGE IN PRECORDIAL LEADS BORDERLINE ECG PREVIOUS TRACING : 03/07/2016 05.55 Compared to prior tracing no significant change DOCTOR: Joseph Rowe Interpretating Date/Time 11/15/2016 20:06:44
[2016-11-15] MEDS: ATORVASTATIN 80 MG TAB PO SCH (20:40)
[2016-11-16] VITALS: BP 129/65; PULSE 65; RESP 18; TEMP 98.1; O2SAT 95
[2016-11-16 04:00] VITALS: BP 117/64; PULSE 72; RESP 18; TEMP 97.8; O2SAT 95
[2016-11-16] MEDS: ACETAMINOPHEN/HYDROcodone 325 MG/5 MG TAB PO PRN (04:32)
[2016-11-16] MEDS: VANCOMYCIN INJ 1,750 MG in SODIUM CHLORID 0.9% 500 ML INJ 500 ML IV SCH (05:40)
[2016-11-16 08:00] VITALS: BP 115/73; PULSE 67; RESP 18; TEMP 97.2; O2SAT 96
[2016-11-16] MEDS: SODIUM CHLORIDE 0.9% FLUSH 5 ML FLUSH FLUSH SCH (08:35)
[2016-11-16] MEDS: LEVOFLOXACIN 500 MG TAB PO SCH (08:35)
[2016-11-16] MEDS: GABAPENTIN 300 MG CAP PO SCH ×2 (08:35→13:04)
[2016-11-16] MEDS: LISINOPRIL 5 MG TAB PO SCH (08:35)
[2016-11-16] MEDS: MICONAZOLE NITRATE 2% CREAM 15 GM TOPICAL SCH (08:37)
[2016-11-16 09:52] VITALS: PULSE 69
[2016-11-16 12:00] VITALS: BP 128/73; PULSE 71; RESP 18; TEMP 98.1; O2SAT 96
--- NOTE | 2016-11-16 12:48 | HHI.PR ---
Subjective Remarks afebrile complains of left knee pain started last evening had previous surgery )- per patient on and off pain able to move - flexion and extension - up and ambulated with a cane- this is baseline Objective Vitals Vital Signs Date Time Temp Pulse Resp B/P Pulse Ox O2 Delivery O2 Flow Rate FiO2 11/16/16 09:52 69 11/16/16 08:00 97.2 67 18 115/73 96 11/16/16 05:32 20 11/16/16 04:00 97.8 72 18 117/64 95 11/16/16 00:00 98.1 65 18 129/65 95 11/15/16 20:00 97.9 73 18 118/59 95 11/15/16 20:00 81 11/15/16 16:00 97.2 80 20 115/65 94 I/O 11/15/16 11/15/16 11/15/16 11/16/16 11/16/16 11/16/16 07:00 15:00 23:00 07:00 15:00 23:00 Intake Total 360 ml 240 ml 480 ml 1120 ml Balance 360 ml 240 ml 480 ml 1120 ml Intake Oral 360 ml 240 ml 480 ml 120 ml IV Total 1000 ml # Voids 2 3 2 2 # Bowel Movements 0 0 Result Diagram: 11/14/16 0708 11/16/16 0718 Objective Remarks obese, awake and alert, NAD anicteric lungs no rales or wheezes regular rhythm/sinus on exam abdomen- globular soft, + bowel sounds groin looks good left knee - mild swelling, no effusion Left leg- scab wounds some wounds with minimal serosanguinous drainage, non foul , ++DP , no limitation in ROM A/P Problem List: (1) Cellulitis ICD Code: L03.90 Status: Chronic (2) Atrial fibrillation, chronic ICD Code: I48.2 Status: Acute (3) Hypertension ICD Code: I10 Status: Chronic (4) Tinea corporis ICD Code: B35.4 Status: Acute Assessment and Plan 56-year-old male with a history of questionable diabetes, hypertension, [place] 3, CAD, A. fib and testicular cancer presented to the ED with: Cellulitis, left lower extremity-Recurrent by history - cultures growing S. aureus-+ gram negative Tib-fib x-ray shows no acute fracture, lower extremity ultrasound negative for DVT -on Vancomycin for S aureus and po Levaquin -sensitivity still pending for gram negative -Pain management with [place] and IV Morphine - Dr. Mg ff Tinea corporis: extensive involvement of the right groin/thigh and right buttock -Itraconazole PO daily , topical antifungal -Keep area clean and dry Chronic left knee pain - get x rays prn pain meds OP ff up with PCP History of CAD S/P MN Hypertension, chronic History of A. fib, chronic- sinus on exam History of DVT per patient continue on Lisinopril -Monitor telemetry -Continue home medications: Coumadin. Lovenox- INR subtherapeutic glucose Intolerance Obesity - BMI 41 Labs: Blood glucose 84 -Accu-Cheks AC/HS- good readings DVT prophylaxis: on Coumadin for above Dd/w S auress sensitivity to levaquin Dr. Mg- DC today on Levaquin 5 days Dilfucan 100 mg po x 3 days cotninue on topical Antifungal Tamiko Gomez MD Nov 16, 2016 12:48
[2016-11-16 13:58] LABS: INTERNATIONAL NORMALIZED RATIO 1.1 RATIO; PROTHROMBIN TIME - PATIENT 12.7 SEC (9.8-11.6)
[2016-11-16] MEDS ORDERED: FLUCONAZOLE 100 MG TAB PO SCH (14:00)
--- NOTE | 2016-11-16 14:57 | RADRPT ---
EXAM DATE/TIME: 11/16/2016 14:39 [facility] COMPARISON: No previous studies available for comparison. INDICATIONS : Left knee pain, no known trauma. MEDICAL HISTORY : None. SURGICAL HISTORY : None. ENCOUNTER: Initial ACUITY: 3 days PAIN SCORE: 10/10 LOCATION: Left knee FINDINGS: There are degenerative changes about the knee with loss of reticular cartilage in the medial and late ral compartments. Alignment is anatomic. Fracture is not appreciated. CONCLUSION: Anatomic alignment otherwise negative. Yves Stanley MD FACR on November 16, 2016 at 14:48 Board Certified Radiologist. This report was verified electronically.
--- NOTE | 2016-11-16 15:01 | HHI.PR ---
Addendum to Inpatient Note Addendum Reason: Additional Documentation Additional Information d/w ok to DC from ID standpoint on Levaquin for 5 days Diflucan for 3 more days Miconazole for LA. Follow up with PCP. Clinically improved. Will sign off please call back if any change in clinical condition or questions. Marisol Mg MD Nov 16, 2016 15:01
[2016-11-16] MEDS ORDERED: LEVA500T PO (15:03)
[2016-11-16] MEDS ORDERED: HYDR-3516 PO (15:03)
[2016-11-16] MEDS ORDERED: COUM2.5T PO (15:03)
[2016-11-16] MEDS ORDERED: DIFL100T PO (15:03)
[2016-11-16] MEDS ORDERED: Miconazole 2% Cream TOPICAL (15:03)
--- NOTE | 2016-11-16 15:18 | HHI.FF ---
Face to Face Verification Diagnosis: (1) Left leg cellulitis Home Health Nursing Order: Medical education Signs/symptoms of disease process Wound care and dressing changes I have seen patient Willian Cardona on 11/16/16. My clinical findings support the need for the requested home health care services because: Ltd mobility - disease progression Deconditioned w/ increased weakness Infection w/ risk of complications I certify that my clinical findings support that this patient is homebound because: Unsafe to leave home unassisted Tamiko Gomez MD Nov 16, 2016 15:18
--- NOTE | 2016-11-16 15:19 | HHI.DS ---
Discharge Summary Admission Date Nov 13, 2016 at 19:48 Discharge Date: Nov 16, 2016 Admitting Diagnosis left leg cellulitis, diabetic foot wound (1) Cellulitis ICD Code: L03.90 Diagnosis: Principal (2) Atrial fibrillation, chronic ICD Code: I48.2 Diagnosis: Principal (3) Hypertension ICD Code: I10 Diagnosis: Secondary (4) Tinea corporis ICD Code: B35.4 Diagnosis: Principal Procedures none Brief History - From Admission 56-year-old male with a history of questionable diabetes, hypertension, [place] 3, CAD, A. fib, asthma and testicular cancer presented to the ED with complaints of left lower extremity edema, pain and redness since Sunday. Patient states his left leg is always bigger than his right ever since his femur surgery in 2000 but states it has increased and he began having open wounds on Sunday, draining fluid, and is causing him severe pain when ambulating. He is also complaining of a rash on his right groin that extends across his right thigh onto his right buttock that also began on Sunday, denies any itching. He states he does have chills but is unsure if he has had a fever. He denies any chest pain, short of breath, nausea or vomiting. CBC/BMP: 11/14/16 0708 11/16/16 0718 Significant Findings Laboratory Tests Test 11/13/16 11/14/16 11/15/16 11/16/16 16:20 07:08 19:21 07:18 Red Blood Count 4.15 MIL/MM3 3.69 MIL/MM3 (4.50-5.90) (4.50-5.90) Mean Corpuscular Hemoglobin 34.1 PG (27.0-34.0) Blood Urea Nitrogen 6 MG/DL (7-18) Estimat Glomerular Filtration 84 ML/MIN (>89) 85 ML/MIN (>89) Rate Albumin 3.3 GM/DL (3.4-5.0) Hemoglobin 12.4 GM/DL (13.0-17.0) Hematocrit 35.9 % (39.0-51.0) Neutrophils (%) (Auto) 73.2 % (16.0-70.0) Random Glucose 108 MG/DL (74-106) Calcium Level 8.2 MG/DL (8.5-10.1) Vancomycin Level Trough 13.5 MCG/ML (5.0-10.0) Test 11/16/16 13:33 Prothrombin Time 12.7 SEC (9.8-11.6) PE at Discharge obese, awake and alert, NAD anicteric lungs no rales or wheezes regular rhythm/sinus on exam abdomen- globular soft, + bowel sounds groin looks good left knee - mild swelling, no effusion Left leg- scab wounds some wounds with minimal serosanguinous drainage, non foul , ++DP , no limitation in ROM Pt update on day of discharge afebrile knows about home health care service will call his PCP - tomorrow- [facility]. Polo [place] [facility] [place] [facility] IN[place] as OP instructed him to increase coumadin to 12.5 mg daily- script for 2.5 written Hospital Course 56-year-old male with a history of questionable diabetes, hypertension, [place] 3, CAD, A. fib and testicular cancer presented to the ED with: Cellulitis, left lower extremity-Recurrent by history - cultures growing S. aureus-+ gram negative Tib-fib x-ray shows no acute fracture, lower extremity ultrasound negative for DVT -on Vancomycin for S aureus and po Levaquin -sensitivity still pending for gram negative -Pain management with [place] and IV Morphine - Dr. Mg ff Tinea corporis: extensive involvement of the right groin/thigh and right buttock -Itraconazole PO daily , topical antifungal -Keep area clean and dry Chronic left knee pain - get x rays prn pain meds OP ff up with PCP History of CAD S/P [place] Hypertension, chronic History of A. fib, chronic- sinus on exam History of DVT per patient continue on Lisinopril -Monitor telemetry -Continue home medications: Coumadin. Lovenox- INR subtherapeutic glucose Intolerance Obesity - BMI 41 Labs: Blood glucose 84 -Accu-Cheks AC/HS- good readings DVT prophylaxis: on Coumadin for above Dd/w S auress sensitivity to levaquin Dr. Mg- DC today on Levaquin 5 days Dilfucan 100 mg po x 3 days cotninue on topical Antifungal Pt Condition on Discharge: Stable Discharge Disposition: Disch w/ Home Health Serv Discharge Time: <= 30 minutes Discharge Instructions DIET: Follow Instructions for: Heart Healthy Diet Speech Therapy-Diet Recommends: Regular Activities you can perform: Weight Bearing as Sweetie Follow up Referrals: PCP Follow-up - 11/20/16 with ED[facility]ARATE New Orders: PROTHROMBIN TIME (PT) - Next Day New Medications: Fluconazole (Diflucan) 100 Mg Tab 100 MG PO DAILY Infection Days 2 TAB Hydrocodone-Acetaminophen (Hydrocodone-Acetaminophen) 5-325 mg Tab 1 TAB PO Q8HR PRN PAIN SCALE 4 TO 10 #20 Ref 0 TAB Levofloxacin (Levaquin) 500 Mg Tab 500 MG PO DAILY Infection Days 5 TAB Warfarin (Coumadin) 2.5 Mg Tab 2.5 MG PO DAILY@16 antico #30 TAB ([Miconazole 2% Cream]) 15 APPLIC/15 GM CR 1 APPLIC TOPICAL Q12HR Infection Days 7 TUBE Continued Medications: Atorvastatin (Atorvastatin) 80 Mg Tab 80 MG PO HS Cholesterol Management #30 Ref 0 TAB Gabapentin (Gabapentin) 300 Mg Cap 300 MG PO TID #90 Ref 0 CAP Lisinopril (Lisinopril) 5 Mg Tab 5 MG PO DAILY Blood Pressure Management #30 Ref 0 TAB Warfarin (Warfarin) 10 Mg Tab 10 MG PO DAILY Blood Clot Prevention #30 Ref 0 TAB Tamkio Gomez MD Nov 16, 2016 15:19
[2016-11-16] MEDS: WARFARIN SOD 10 MG TAB PO SCH (15:55)
[2016-11-16] MEDS ORDERED: WARFARIN SOD 2.5 MG TAB PO SCH (16:00)
== END 2016-11-16 16:12 | disposition home or self-care (01) | DRG 603 ==
LOC: NEPA 13:57 → NEDA 19:48 → N04A 20:13
PROVIDERS: ADMIT Internal Medicine; ATTEND Internal Medicine
DX: L03.116 Cellulitis of left lower limb (principal); E11.628 Type 2 diabetes mellitus with other skin complications; Z68.41 Body mass index [BMI] 40.0-44.9, adult; I10 Essential (primary) hypertension; B35.4 Tinea corporis; I48.2 Chronic atrial fibrillation; I89.1 Lymphangitis; I25.10 Atherosclerotic heart disease of native coronary artery without angina pectoris; J45.909 Unspecified asthma, uncomplicated; E66.01 Morbid (severe) obesity due to excess calories; B95.7 Other staphylococcus as the cause of diseases classified elsewhere; Z86.14 Personal history of Methicillin resistant Staphylococcus aureus infection; Z91.14 Patient's other noncompliance with medication regimen; Z85.47 Personal history of malignant neoplasm of testis; I25.2 Old myocardial infarction
CPT/HCPCS: 73564; 73590; 80048; 80053; 80202; 82565; 82948; 83036; 83605; 85025; 85610; 85730; 86403; 87040; 87070; 87077; 87147; 87186; 87205; 93005; 93971; 96365; J3370; J7040; J7050

== ENCOUNTER 2017-05-31 21:20 | Emergency (ER) | payer MEDICARE, OTHER ==
[~2017-05-31] VITALS: Ht 172.7 cm; Wt 125.0 kg
[~2017-05-31 21:20] MED LIST changes: +ATOR1TAB18 PO; -ATOR80TA PO; -COUM10TA PO; +COUM2.5T PO; +DIFL100T PO; -GABA300C3 PO; +GABA300C5 PO; +HYDR-3516 PO; -HYDR-3533 PO; +LEVA500T PO; +LISI-519 PO; -LISI5 PO; +Miconazole 2% Cream TOPICAL; -PERC5TAB12 PO; +WARF-22 PO
[2017-05-31 21:31] VITALS: BP 118/74; PULSE 89; RESP 16; TEMP 97.6
--- NOTE | 2017-05-31 21:33 | PD ---
HPI Chief Complaint: EtOH/near-syncope Time Seen by Provider: 21:26 Travel History International Travel<30 days: No Contact w/Intl Traveler<30days: No Traveled to known affect area: No History of Present Illness HPI 56-year-old male with history of CAD, cardiac stents, diabetes, lymphedema of the left lower extremity, DVT on coumadin, brought in by ambulance for evaluation of a near syncopal episode. The patient had been drinking alcohol today. Apparently [place] a bar. He states that today about an hour and a half ago he felt as though he might pass out. He never actually syncopized. He has been having a cough productive of greenish sputum. He states that 2 days ago he had some right-sided chest discomfort that was worse with palpation. Currently he has no chest pain. States that his left lower extremity changes are chronic. He denies illicit drug use. Denies trauma. PFSH Past Medical History Hx Anticoagulant Therapy: No Arthritis: No Asthma: Yes ( A CHILD) Atrial Fibrillation: Yes Anxiety: No Depression: No Heart Rhythm Problems: Yes (AFIB) Cancer: Yes (TESTICULAR) Cardiac Catheterization: Yes Cardiovascular Problems: Yes (3 TX'S, STENTS, A-FIB) High Cholesterol: Yes Chemotherapy: No Chest Pain: Yes Congestive Heart Failure: No Cerebrovascular Accident: No Coronary Artery Disease: Yes Diabetes: Yes Diminished Hearing: No Deep Vein Thrombosis: Yes (MULTIPLE LLE; LAST ONE 2014) Endocrine: No Gastrointestinal Disorders: No GERD: No Genitourinary: No Hiatal Hernia: No Hypertension: Yes Immune Disorder: No Inguinal Hernia: Yes Implanted Vascular Access Dvce: Yes Kidney Stones: No Musculoskeletal: Yes (SCIATIC NERVE) Neurologic: No Psychiatric: No Reproductive: No Respiratory: Yes (ASTHMA) Integumentary: Yes (H/O MRSA TO LLE) Immunizations Current: No Migraines: No Myocardial Infarction: Yes (X3) Renal Failure: No Seizures: No Ulcer: No Past Surgical History Abdominal Surgery: No Appendectomy: Yes Body Medical Devices: AKIRA FILTER Cardiac Surgery: Yes Coronary Stent: Yes (X3) Ear Surgery: No Endocrine Surgery: No Eye Surgery: No Genitourinary Surgery: Yes (TESTICULAR CA-REMOVED R) Neurologic Surgery: No Oral Surgery: No Thoracic Surgery: Yes (IVC FILTER) Tonsillectomy: Yes Other Surgery: Yes (IVC FILTER) Social History Alcohol Use: Yes (MODERATELY) Tobacco Use: No Substance Use: No Allergies-Medications (Allergen,Severity, Reaction): Coded Allergies: penicillin G (Unverified Allergy, Severe, 04/17/17) *MDRO Multi-Drug Resistant Organism (Verified Adverse Reaction, Unknown, ) 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 - 01/10/16 Reported Meds & Prescriptions Reported Meds & Active Scripts Active Reported Warfarin 10 Mg Tab 11 Mg PO DAILY Lisinopril 5 Mg Tab 5 Mg PO DAILY Gabapentin 300 Mg Cap 300 Mg PO TID Atorvastatin (Atorvastatin Calcium) 80 Mg Tab 80 Mg PO HS Review of Systems Except as stated in HPI: all other systems reviewed are Neg Physical Exam Narrative GENERAL: Well-developed, well-nourished, awake, alert, disheveled, no apparent distress. SKIN: Focused skin assessment warm/dry. Ecchymosis to left lower extremity with significant edema throughout without warmth or erythema, no ulcerations or open wounds. HEAD: Atraumatic. Normocephalic. EYES: He was equal, round, 4 mm, reactive to light. EOMI. No scleral icterus. No injection or drainage. ENT: Mucous membranes pink and moist. NECK: Trachea midline. No JVD. No nuchal rigidity. CARDIOVASCULAR: Regular rate and rhythm. Distal pulses brisk and equal bilaterally. RESPIRATORY: No accessory muscle use. Clear to auscultation. Breath sounds equal bilaterally. GASTROINTESTINAL: Abdomen soft, non-tender, nondistended. Hepatic and splenic margins not palpable. MUSCULOSKELETAL: No obvious deformities. Left lower extremity with skin exam as above with diffuse significant edema, all compartments are soft. Patient has history of lymphedema in this extremity. NEUROLOGICAL: Awake and alert. No obvious cranial nerve deficits. Motor grossly within normal limits. Normal speech. No focal deficit. PSYCHIATRIC: Appropriate mood and affect; insight and judgment normal. Data Data Last Documented VS Vital Signs Date Time Temp Pulse Resp B/P (MAP) Pulse Ox O2 Delivery O2 Flow Rate FiO2 05/31/17 21:40 89 16 118/74 (89) 98 Room Air 05/31/17 21:31 97.6 Orders Orders Electrocardiogram (05/31/17 21:33) Complete Blood Count With Diff (05/31/17 21:33) Comprehensive Metabolic Panel (05/31/17 21:33) Magnesium (Mg) (05/31/17 21:33) Ckmb (Isoenzyme) Profile (05/31/17 21:33) Troponin I (05/31/17 21:33) Act Partial Throm Time (Ptt) (05/31/17 21:33) Prothrombin Time / Inr (Pt) (05/31/17 21:33) Chest, Single Ap (05/31/17 21:33) Ct Brain W/O Iv Contrast(Rout) (05/31/17 21:33) Ecg Monitoring (05/31/17 21:33) Iv Access Insert/Monitor (05/31/17 21:33) Oximetry (05/31/17 21:33) Sodium Chloride 0.9% Flush (Ns Flush) (05/31/17 21:45) Alcohol (Ethanol) (05/31/17 21:33) CKMB (05/31/17 22:20) CKMB% (05/31/17 22:20) Potassium Chloride (Kcl) (05/31/17 23:30) Labs Laboratory Tests Test 05/31/17 22:20 White Blood Count 6.3 TH/MM3 Red Blood Count 4.15 MIL/MM3 Hemoglobin 14.2 GM/DL Hematocrit 40.9 % Mean Corpuscular Volume 98.6 FL Mean Corpuscular Hemoglobin 34.4 PG Mean Corpuscular Hemoglobin Concent 34.8 % Red Cell Distribution Width 14.3 % Platelet Count 160 TH/MM3 Mean Platelet Volume 8.5 FL Neutrophils (%) (Auto) 60.0 % Lymphocytes (%) (Auto) 29.6 % Monocytes (%) (Auto) 4.2 % Eosinophils (%) (Auto) 4.8 % Basophils (%) (Auto) 1.4 % Neutrophils # (Auto) 3.8 TH/MM3 Lymphocytes # (Auto) 1.9 TH/MM3 Monocytes # (Auto) 0.3 TH/MM3 Eosinophils # (Auto) 0.3 TH/MM3 Basophils # (Auto) 0.1 TH/MM3 CBC Comment DIFF FINAL Differential Comment Prothrombin Time 10.7 SEC Prothromb Time International Ratio 1.0 RATIO Activated Partial Thromboplast Time 22.4 SEC Blood Urea Nitrogen 8 MG/DL Creatinine 0.85 MG/DL Random Glucose 103 MG/DL Total Protein 7.5 GM/DL Albumin 3.5 GM/DL Calcium Level 8.0 MG/DL Magnesium Level 2.0 MG/DL Alkaline Phosphatase 96 U/L Aspartate Amino Transf (AST/SGOT) 24 U/L Alanine Aminotransferase (ALT/SGPT) 35 U/L Total Bilirubin 0.3 MG/DL Sodium Level 135 MEQ/L Potassium Level 3.2 MEQ/L Chloride Level 103 MEQ/L Carbon Dioxide Level 21.4 MEQ/L Anion Gap 11 MEQ/L Estimat Glomerular Filtration Rate 94 ML/MIN Total Creatine Kinase 199 U/L Creatine Kinase MB 4.6 NG/ML Troponin I LESS THAN 0.02 NG/ML Ethyl Alcohol Level 199 MG/DL [facility] Medical Decision Making Medical Screen Exam Complete: Yes Emergency Medical Condition: Yes Interpretation(s) EKG: Sinus, rate 78, normal axis, normal intervals, nonspecific T-wave abnormality, no ST segment abnormalities. Differential Diagnosis Near syncope, dysrhythmia, intracranial abnormality, metabolic abnormality, alcohol intoxication, ACS, pneumonia. Narrative Course Vital signs show heart rate 89, blood pressure 118/74, pulse ox 98% on room air , oral temp of 97.6F. CBC is unremarkable. CMP is remarkable for potassium 3.2 which was replaced orally. Cardiac enzymes are negative. Alcohol level is 200. CT head: Negative noncontrast head CT. Chest x-ray: No evidence of acute cardio pulmonary disease. Patient was made aware of all findings. On reassessment he is sleeping comfortably. There are no focal deficits on exam. He did not actually syncopize today, but states he felt like he was going to pass out. Again he did not have any chest pain today. I believe that his current symptoms of generalized weakness and near-syncope are related to him being intoxicated with alcohol. He will be allowed to sleep off his intoxication in the emergency department and discharged home with outpatient follow-up with his primary care physician once sober. Diagnosis Primary Impression: Alcohol intoxication Qualified Codes: F10.920 - Alcohol use, unspecified with intoxication, uncomplicated Additional Impressions: Generalized weakness Near syncope Referrals: Primary Care Physician 3 days Additional Instructions: Follow-up with your primary care physician this week. Return to the emergency department for worsening symptoms or any other concerns. Disposition: 01 DISCHARGE HOME Condition: Stable Baldomero Quiñones MD May 31, 2017 21:33
[2017-05-31 21:40] VITALS: BP 118/74; PULSE 89; RESP 16; O2SAT 98
[2017-05-31] MEDS ORDERED: SODIUM CHLORIDE 0.9% FLUSH 10 ML FLUSH IVF PRN (21:45)
[2017-05-31] MEDS ORDERED: WARF-22 PO (21:56)
--- NOTE | 2017-05-31 22:04 | RADRPT ---
EXAM DATE/TIME: 05/31/2017 21:42 [facility] COMPARISON: CT BRAIN W/O CONTRAST, October 03, 2016, 22:10. INDICATIONS : Syncopal episode. RADIATION DOSE: 43.23 CTDIvol (mGy) MEDICAL HISTORY : Myocardial infarction. Hypertension. Carcinoma, testicular. SURGICAL HISTORY : None. ENCOUNTER: Initial ACUITY: 1 day PAIN SCALE: 2/10 LOCATION: cranial TECHNIQUE: Multiple contiguous axial images were obtained of the head. Using automated exposure control and adj ustment of the mA and/or kV according to patient size, radiation dose was kept as low as reasonably a chievable to obtain optimal diagnostic quality images. DICOM format image data is available electro nically for review and comparison. FINDINGS: CEREBRUM: The ventricles are normal for age. No evidence of midline shift, mass lesion, hemorrhage or acute in farction. No extra-axial fluid collections are seen. POSTERIOR FOSSA: The cerebellum and brainstem are intact. The 4th ventricle is midline. The cerebellopontine angle i s unremarkable. EXTRACRANIAL: The visualized portion of the orbits is intact. SKULL: The calvaria is intact. No evidence of skull fracture. CONCLUSION: Negative noncontrast head CT. Gregorio Mackenzie MD on May 31, 2017 at 22:02 Board Certified Radiologist. This report was verified electronically.
--- NOTE | 2017-05-31 22:05 | RADRPT ---
EXAM DATE/TIME: 05/31/2017 21:46 [facility] COMPARISON: No previous studies available for comparison. INDICATIONS : Syncope MEDICAL HISTORY : Hypercholesterolemia. Deep venous thrombosis. Hypertension. Myocardial infarction x 3. Coronary arter y disease. Afib. Asthma. Inguinal hernia. Diabetes. Testicular cancer, MRSA. SURGICAL HISTORY : Coronary artery stent. Tonsillectomy. Appendectomy. Right testicleremoval. Left femur fracture repair . Left rotator cuff repair. IVC filter. ENCOUNTER: Initial ACUITY: 1 day PAIN SCORE: 0/10 LOCATION: Bilateral chest FINDINGS: A single view of the chest demonstrates the lungs to be symmetrically aerated without evidence of mas s, infiltrate or effusion. The cardiomediastinal contours are unremarkable. Osseous structures are intact. CONCLUSION: No evidence of acute cardiopulmonary disease. Gregorio Mackenzie MD on May 31, 2017 at 22:03 Board Certified Radiologist. This report was verified electronically.
[2017-05-31 22:30] LABS: AUTOMATED NEUTROPHIL # 3.8 TH/MM3 (1.8-7.7); BASOPHIL # 0.1 TH/MM3 (0-0.2); BASOPHIL % 1.4 % (0.0-2.0); EOSINOPHIL # 0.3 TH/MM3 (0-0.4); EOSINOPHIL % 4.8 % (0.0-4.0); HEMATOCRIT 40.9 % (39.0-51.0); HEMO FLAGS DIFF FINAL; LYMPH % 29.6 % (9.0-44.0); LYMPHOCYTE # 1.9 TH/MM3 (1.0-4.8); MEAN CELL VOLUME 98.6 FL (80.0-100.0); MEAN CORPUSCULAR HEMOGLOBIN 34.4 PG (27.0-34.0); MEAN CORPUSCULAR HGB CONC 34.8 % (32.0-36.0); MONO % 4.2 % (0.0-8.0); PLATELET COUNT 160 TH/MM3 (150-450); RED BLOOD COUNT 4.15 MIL/MM3 (4.50-5.90); RED CELL DISTRIBUTION WIDTH 14.3 % (11.6-17.2); WHITE BLOOD COUNT 6.3 TH/MM3 (4.0-11.0)
[2017-05-31 23:00] LABS: APTT (PATIENT) 22.4 SEC (24.3-30.1); PROTHROMBIN TIME - PATIENT 10.7 SEC (9.8-11.6)
[2017-05-31 23:01] LABS: ALT (GPT) 35 U/L (12-78); ANION GAP 11 MEQ/L (5-15); AST (GOT) 24 U/L (15-37); BICARBONATE 21.4 MEQ/L (21.0-32.0); BLOOD UREA NITROGEN 8 MG/DL (7-18); CHLORIDE 103 MEQ/L (98-107); GLOMERULAR FILTRATION RATE 94 ML/MIN (>89); POTASSIUM 3.2 MEQ/L (3.5-5.1); SODIUM (NA) 135 MEQ/L (136-145)
[2017-05-31 23:02] LABS: ALCOHOL 199 MG/DL (0-5)
[2017-05-31 23:06] LABS: ALKALINE PHOSPHATASE 96 U/L (45-117); CREATINE KINASE 199 U/L (39-308); TOTAL BILIRUBIN ADULT 0.3 MG/DL (0.2-1.0)
[2017-05-31 23:18] LABS: CKMB 4.6 NG/ML (0.5-3.6)
[2017-05-31] MEDS ORDERED: POTASSIUM CHLORIDE 20 MEQ CONTROLLED RELEASE TAB PO ONE (23:30)
[2017-06-01 06:21] VITALS: PULSE 70; RESP 16; O2SAT 97
--- NOTE | 2017-06-01 10:21 | EKG ---
Date Performed: 05/31/2017 Time Performed: 22:47:37 PTAGE: 56 years EKG: Sinus rhythm Compared to prior tracing no significant change BORDERLINE ECG PREVIOUS TRACING : 11/14/2016 18.26 DOCTOR: Jef Walter Interpretating Date/Time 06/01/2017 10:15:57
== END 2017-06-01 09:11 | disposition home or self-care (01) ==
LOC: NEPD 21:20
DX: F10.920 Alcohol use, unspecified with intoxication, uncomplicated (principal); R53.1 Weakness; R55 Syncope and collapse; R94.31 Abnormal electrocardiogram [ECG] [EKG]; I25.10 Atherosclerotic heart disease of native coronary artery without angina pectoris; I89.0 Lymphedema, not elsewhere classified; E11.9 Type 2 diabetes mellitus without complications; J45.909 Unspecified asthma, uncomplicated; I48.91 Unspecified atrial fibrillation; I10 Essential (primary) hypertension
CPT/HCPCS: 70450; 71010; 80053; 80307; 82550; 82552; 83735; 84484; 85025; 85610; 85730; 93005; 99285

== ENCOUNTER 2017-07-16 08:34 | Emergency (ER) | payer OTHER ==
[~2017-07-16] VITALS: Ht 172.7 cm; Wt 130.0 kg
[~2017-07-16 08:34] MED LIST changes: -ATOR1TAB18 PO; +ATOR80TA45 PO; -COUM2.5T PO; -DIFL100T PO; -HYDR-3516 PO; -LEVA500T PO; -Miconazole 2% Cream TOPICAL
[2017-07-16 08:37] VITALS: BP 186/118; PULSE 87; RESP 18; TEMP 98.1; O2SAT 95
--- NOTE | 2017-07-16 08:47 | PD ---
HPI Chief Complaint: Pain: Acute or Chronic Time Seen by Provider: 08:45 Travel History International Travel<30 days: No Contact w/Intl Traveler<30days: No Traveled to known affect area: No History of Present Illness HPI 56-year-old male presents to the emergency department for right sciatica pain for 2 weeks, worsening of the last 4 days. States that this pain started improving without any intervention but then worsened and now is radiating down to his toes. States that he does not have back pain. The pain is moderate and starts in his right gluteus and travels behind his right leg and down to his toes. States that his right toes feel "numb". Describes the pain as achy and occasionally sharp. Denies any inciting events. Patient denies fever, trauma, chills saddle anesthesia, loss of bowel or bladder function. States that when he presents with the symptoms he usually gets treated with steroids of some sort. PFSH Past Medical History Hx Anticoagulant Therapy: No Arthritis: No Asthma: Yes ( A CHILD) Atrial Fibrillation: Yes Anxiety: No Depression: No Heart Rhythm Problems: Yes (AFIB) Cancer: Yes (TESTICULAR) Cardiac Catheterization: Yes Cardiovascular Problems: Yes High Cholesterol: Yes Chemotherapy: No Chest Pain: Yes Congestive Heart Failure: No Cerebrovascular Accident: No Coronary Artery Disease: Yes Diabetes: Yes Diminished Hearing: No Deep Vein Thrombosis: Yes (MULTIPLE LLE; LAST ONE 2014) Endocrine: No Gastrointestinal Disorders: No GERD: No Genitourinary: No Hiatal Hernia: No Hypertension: Yes Immune Disorder: No Inguinal Hernia: Yes Implanted Vascular Access Dvce: Yes Kidney Stones: No Musculoskeletal: Yes (SCIATIC NERVE) Neurologic: No Psychiatric: No Reproductive: No Respiratory: Yes (ASTHMA) Integumentary: Yes (H/O MRSA TO LLE) Immunizations Current: No Migraines: No Myocardial Infarction: Yes (X3) Renal Failure: No Seizures: No Ulcer: No Past Surgical History Abdominal Surgery: No Appendectomy: Yes Body Medical Devices: AKIRA FILTER Cardiac Surgery: Yes Coronary Stent: Yes (X3) Ear Surgery: No Endocrine Surgery: No Eye Surgery: No Genitourinary Surgery: Yes (TESTICULAR CA-REMOVED R) Neurologic Surgery: No Oral Surgery: No Thoracic Surgery: Yes (IVC FILTER) Tonsillectomy: Yes Other Surgery: Yes (IVC FILTER) Social History Alcohol Use: Yes (MODERATELY) Tobacco Use: No Substance Use: No Allergies-Medications (Allergen,Severity, Reaction): Coded Allergies: penicillin G (Unverified Allergy, Severe, 04/17/17) *MDRO Multi-Drug Resistant Organism (Verified Adverse Reaction, Unknown, ) 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 HEAD: Atraumatic. Normocephalic. EYES: Pupils equal and round. No scleral icterus. No injection or drainage. ENT: No nasal bleeding or discharge. Mucous membranes pink and moist. NECK: Trachea midline. No JVD. CARDIOVASCULAR: Regular rate and rhythm. No murmur appreciated. RESPIRATORY: No accessory muscle use. Clear to auscultation. Breath sounds equal bilaterally. MUSCULOSKELETAL: No obvious deformities. No clubbing. No cyanosis. No edema. No midline spine tenderness Mild TTP of the right gluteal. Neurovascularly intact. NEUROLOGICAL: Awake and alert. No obvious cranial nerve deficits. Motor grossly within normal limits. Normal speech. PSYCHIATRIC: Appropriate mood and affect; insight and judgment normal. Data Data Last Documented VS Vital Signs Date Time Temp Pulse Resp B/P (MAP) Pulse Ox O2 Delivery O2 Flow Rate FiO2 07/16/17 10:33 75 18 137/88 (104) 98 07/16/17 10:14 Room Air 07/16/17 08:37 98.1 Orders Orders Methylprednisolone So Succ Inj (Solumedr (07/16/17 09:00) Ketorolac Inj (Toradol Inj) (07/16/17 09:00) Lidocaine 5% Patch.12 Hr (Lidoderm 5% Pa (07/16/17 09:00) Clonidine (Catapres) (07/16/17 09:15) Ed Discharge Order (07/16/17 09:41) [facility] Medical Decision Making Medical Screen Exam Complete: Yes Emergency Medical Condition: Yes Differential Diagnosis Right-sided sciatica versus acute lumbago versus muscle spasms HTN vs malignant HTN vs very elevated BP Narrative Course 56-year-old male presents to the emergency department for right sciatica pain for 2 weeks, worsening of the last 4 days. States that this pain started improving without any intervention but then worsened and now is radiating down to his toes. States that he does not have back pain. The pain is moderate and starts in his right gluteus and travels behind his right leg and down to his toes. States that his right toes feel "numb". Describes the pain as achy and occasionally sharp. Denies any inciting events. Patient denies fever, trauma, chills saddle anesthesia, loss of bowel or bladder function. States that when he presents with the symptoms he usually gets treated with steroids of some sort. Vital Signs- BP was very elevated upon arrival. Clonidine 0.1mg administered with good reduction in BP. Physical exam consistent with sciatica pain. No TTP along spine. TTP present along right glut with obvious muscle spasms. Imaging studies not indicated. Toradol, solumedrol, and lidocaine patch applied to right hip/glut. Pt pain decreased. Discharged with muscle relaxers and medrol dose pack. Follow up with PCP within 2 days and return for worseninig symptoms. Diagnosis Primary Impression: Sciatica Qualified Codes: M54.31 - Sciatica, right side Additional Impression: Elevated blood pressure reading with diagnosis of hypertension Referrals: Primary Care Physician Additional Instructions: Perform light stretches of the lower back and legs, and alternate heat and ice packs. If you develop increased pain, weakness, fever, chills, or bowel or bladder issues, return to the ED for further treatment and evaluation. Follow up with your primary care physician in 2-3 days. Medications as prescribed Scripts Methocarbamol (Robaxin) 500 Mg Tab 500 MG PO TID for Muscle Spasm for 5 Days, TAB 0 Refills Prov: Vandana Fleming MD 07/16/17 Methylprednisolone Dosepak (Medrol Dosepak) 4 Mg Dspk 4 MG PO DIRECTED, #1 DSPK 0 Refills Per Pharmacist direction Prov: Vandana Fleming MD 11/13/17 Disposition: 01 DISCHARGE HOME Condition: Stable Justice,Alexandra PA Jul 16, 2017 08:47
[2017-07-16] MEDS ORDERED: methylPREDNISolone SOD SUCC 125 MG/2 ML VIAL IM ONE (09:00)
[2017-07-16] MEDS ORDERED: LIDOCAINE HCL 5% PATCH T-DERMAL ONE (09:00)
[2017-07-16] MEDS ORDERED: KETOROLAC TROMETHAMINE 60 MG/2 ML (IM) VIAL IM ONE (09:00)
[2017-07-16] MEDS ORDERED: cloNIDine HCL 0.1 MG TAB PO ONE (09:15)
[2017-07-16 09:21] VITALS: BP 166/94; PULSE 73; RESP 21; O2SAT 96
[2017-07-16] MEDS ORDERED: MEDR4PAK PO (09:38)
[2017-07-16] MEDS ORDERED: ROBA500T PO (09:41)
[2017-07-16 10:14] VITALS: BP 169/95; PULSE 75; RESP 18; O2SAT 95
[2017-07-16 10:33] VITALS: BP 137/88; PULSE 75; RESP 18; O2SAT 98
== END 2017-07-16 10:34 | disposition home or self-care (01) ==
LOC: NEPD 08:34
DX: M54.31 Sciatica, right side (principal); I10 Essential (primary) hypertension; M62.838 Other muscle spasm; E11.9 Type 2 diabetes mellitus without complications; E78.00 Pure hypercholesterolemia, unspecified; I25.2 Old myocardial infarction; Z87.09 Personal history of other diseases of the respiratory system; Z86.79 Personal history of other diseases of the circulatory system; Z85.47 Personal history of malignant neoplasm of testis; Z86.718 Personal history of other venous thrombosis and embolism; Z87.39 Personal history of other diseases of the musculoskeletal system and connective tissue; Z87.2 Personal history of diseases of the skin and subcutaneous tissue
CPT/HCPCS: 96372; 99284; J1885; J2930

== ENCOUNTER 2017-07-27 08:39 | Emergency (ER) | payer OTHER ==
[~2017-07-27] VITALS: Ht 172.7 cm; Wt 130.0 kg
[~2017-07-27 08:39] MED LIST changes: +MEDR4PAK PO; +ROBA500T PO
[2017-07-27 08:40] VITALS: BP 136/87; PULSE 74; RESP 14; TEMP 98.3; O2SAT 98
[2017-07-27] MEDS ORDERED: CYCL10TA PO (09:37)
[2017-07-27] MEDS ORDERED: TRAM50 PO (09:37)
[2017-07-27] MEDS ORDERED: PRED10PA2 PO (09:37)
--- NOTE | 2017-07-27 09:37 | PD ---
HPI . Leg pain Chief Complaint: Back/ Neck Pain or Injury Time Seen by Provider: 09:12 Travel History International Travel<30 days: No Contact w/Intl Traveler<30days: No Traveled to known affect area: No History of Present Illness HPI This patient presents with a chief complaint of right leg pain for 3-1/2 weeks. The patient reports that he was seen here for same as ago and prescribed a steroid dosepak and Robaxin which he has completed without relief. He states that his pain is getting worse rather than better. He denies any. He denies any worrisome neurological complaints such as overflow incontinence or perineal anesthesia. He reports a long-standing history of intermittent sciatica. He rates his pain currently as 10/10. PFSH Past Medical History Hx Anticoagulant Therapy: Yes Arthritis: No Asthma: Yes ( A CHILD) Atrial Fibrillation: Yes Anxiety: No Depression: No Heart Rhythm Problems: Yes (AFIB) Cancer: Yes (TESTICULAR) Cardiac Catheterization: Yes Cardiovascular Problems: Yes High Cholesterol: Yes Chemotherapy: No Chest Pain: Yes Congestive Heart Failure: No Cerebrovascular Accident: No Coronary Artery Disease: Yes Diabetes: Yes Diminished Hearing: No Deep Vein Thrombosis: Yes (MULTIPLE LLE; LAST ONE 2014) Endocrine: No Gastrointestinal Disorders: No GERD: No Genitourinary: No Hiatal Hernia: No Hypertension: Yes Immune Disorder: No Inguinal Hernia: Yes Implanted Vascular Access Dvce: Yes Kidney Stones: No Musculoskeletal: Yes (SCIATIC NERVE) Neurologic: No Psychiatric: No Reproductive: No Respiratory: Yes (ASTHMA) Integumentary: Yes (H/O MRSA TO LLE) Immunizations Current: Yes Migraines: No Myocardial Infarction: Yes (X3) Renal Failure: No Seizures: No Ulcer: No Past Surgical History Abdominal Surgery: No Appendectomy: Yes Body Medical Devices: AKIRA FILTER Cardiac Surgery: Yes Coronary Stent: Yes (X3) Ear Surgery: No Endocrine Surgery: No Eye Surgery: No Genitourinary Surgery: Yes (TESTICULAR CA-REMOVED R) Neurologic Surgery: No Oral Surgery: No Thoracic Surgery: Yes (IVC FILTER) Tonsillectomy: Yes Other Surgery: Yes (IVC FILTER) Social History Alcohol Use: Yes (MODERATELY) Tobacco Use: No Substance Use: No Allergies-Medications (Allergen,Severity, Reaction): Coded Allergies: penicillin G (Unverified Allergy, Severe, 07/27/17) *MDRO Multi-Drug Resistant Organism (Verified Adverse Reaction, Unknown, 07/27/17) 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 - 01/10/16 Reported Meds & Prescriptions Reported Meds & Active Scripts Active Reported Warfarin 10 Mg Tab 11 Mg PO DAILY Lisinopril 5 Mg Tab 5 Mg PO DAILY Gabapentin 300 Mg Cap 300 Mg PO TID Atorvastatin (Atorvastatin Calcium) 80 Mg Tab 80 Mg PO HS Review of Systems Except as stated in HPI: all other systems reviewed are Neg Genitourinary: No: Incontinence Musculoskeletal: Positive: Pain Neurologic: No: Weakness, Paresthesia, Incontinence Physical Exam Narrative GENERAL: Awake and alert and in no acute distress. SKIN: Warm and dry. HEAD: Normocephalic/atraumatic. EYES: Pupils are equal. Extraocular movements are intact. NECK: Normal range of motion. CARDIOVASCULAR: Regular rate and rhythm. RESPIRATORY: Nonlabored respirations. MUSCULOSKELETAL: Atraumatic. No tenderness to percussion of the lumbar spine. Log rolling of the right hip causes no pain. Straight leg raise on the right causes right buttock pain. NEUROLOGICAL: Nonfocal. PSYCHIATRIC: Appropriate mood and affect. Data Data Last Documented VS Vital Signs Date Time Temp Pulse Resp B/P (MAP) Pulse Ox O2 Delivery O2 Flow Rate FiO2 07/27/17 08:40 98.3 74 14 136/87 (103) 98 MDM Medical Decision Making Medical Screen Exam Complete: Yes Emergency Medical Condition: Yes Differential Diagnosis Differential diagnosis of leg pain includes but is not limited to lumbar radiculopathy, arthritis, myalgias, DVT. Narrative Course This patient presents complaining with sciatica. He has no worrisome neurological symptoms and no fevers and chills. I will treat him with a longer , stronger steroid Dosepak. Ultram for pain and Flexeril for spasms. Follow up with his primary care doctor for ongoing treatment. Diagnosis Primary Impression: Sciatica Qualified Codes: M54.31 - Sciatica, right side Patient Instructions: General Instructions, Sciatica (DC) Additional Instructions: See your doctor for ongoing treatment Med/Other Pt SpecificInfo: Prescription(s) given Scripts Cyclobenzaprine (Flexeril) 10 Mg Tab 10 MG PO TID for Muscle Spasm, #30 TAB 0 Refills Prov: Marylou Randle MD 07/27/17 Tramadol (Ultram) 50 Mg Tab 50 MG PO Q4H Y for PAIN, #12 TAB 0 Refills Prov: Marylou Randle MD 07/27/17 Prednisone (48) 10 mg tab Dose Pack (Prednisone (48) 10 mg tab Dose Pack) 10 Mg Dspk 10 MG PO DIRECTED for Inflammation, #1 DSPK 0 Refills Prov: Marylou Randle MD 07/27/17 Disposition: 01 DISCHARGE HOME Condition: Stable Marylou Randle MD Jul 27, 2017 09:37
== END 2017-07-27 10:36 | disposition home or self-care (01) ==
LOC: NEPD 08:39
DX: M54.31 Sciatica, right side (principal); M79.604 Pain in right leg; I48.91 Unspecified atrial fibrillation; J45.909 Unspecified asthma, uncomplicated; I25.10 Atherosclerotic heart disease of native coronary artery without angina pectoris; E11.9 Type 2 diabetes mellitus without complications; I10 Essential (primary) hypertension; E78.00 Pure hypercholesterolemia, unspecified; I25.2 Old myocardial infarction
CPT/HCPCS: 99284

== ENCOUNTER 2017-09-08 21:54 | Observation (INO) | payer OTHER ==
[~2017-09-08] VITALS: Ht 172.7 cm; Wt 122.7 kg
[~2017-09-08 21:54] MED LIST changes: +CYCL10TA PO; -MEDR4PAK PO; +PRED10PA2 PO; -ROBA500T PO; +TRAM50 PO
[2017-09-08 21:59] VITALS: BP 117/63; PULSE 97; RESP 20; TEMP 98.1; O2SAT 95
[2017-09-08 22:11] VITALS: BP 117/64; PULSE 98; RESP 22; O2SAT 94
[2017-09-08] MEDS ORDERED: SODIUM CHLORID 0.9% 500 ML INJ 500 ML IV ONE (22:15)
[2017-09-08] MEDS ORDERED: NITROGLYCERIN 0.4 MG SL 25 TABS/BTL SL ONE (22:15)
[2017-09-08] MEDS ORDERED: SODIUM CHLORIDE 0.9% FLUSH 10 ML FLUSH IVF PRN (22:15)
--- NOTE | 2017-09-08 22:18 | PD ---
HPI Chief Complaint: Chest Pain Time Seen by Provider: 22:12 Travel History International Travel<30 days: No Contact w/Intl Traveler<30days: No Traveled to known affect area: No History of Present Illness HPI 56-year-old male presents to the emergency department from home by EMS transport for complaint of retrosternal chest pain. According to the patient at home chest pain was 10 over 10 in intensity presently is stable 10 in intensity. Patient states he has known coronary vessel disease with UT in the past and cardiac catheterization with 3 stents. Patient had last catheter in 2012 with previous catheter with stent in 2011 2009. 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 Patient is followed by [facility]. Patient admits to alcohol consumption this evening. Patient states he drinks alcohol on a regular basis but denies any tobacco use. Patient has hypertension and is out of his blood pressure medication patient has dyslipidemia and does continue to take this medication patient denies tobacco diabetes or family history of CAD. Patient states that en route to the hospital he did receive aspirin and this is confirmed by nurse 162 mg and was all as once a little nitroglycerin with essentially symptom relief but now states he does have 3 over 10 chest discomfort that is nonradiating. Patient states that he did know while climbing stairs he does have some shortness of breath but denies any shortness of breath at this time has had no nausea no vomiting no referred neck jaw back shoulder arm or abdominal pain. PFSH Past Medical History Narrative Medical CAD DVT aspirin hypertension dyslipidemia no tobacco use no diabetes no family history CAD prior surgery cardiac catheterization stent 3 left shoulder surgery appendectomy tonsillectomy and knee surgery nursing notes reviewed Hx Anticoagulant Therapy: Yes Arthritis: No Asthma: Yes ( A CHILD) Atrial Fibrillation: Yes Anxiety: No Depression: No Heart Rhythm Problems: Yes (AFIB) Cancer: Yes (TESTICULAR) Cardiac Catheterization: Yes Cardiovascular Problems: Yes High Cholesterol: Yes Chemotherapy: No Chest Pain: Yes Congestive Heart Failure: No Cerebrovascular Accident: No Coronary Artery Disease: Yes Diabetes: Yes Patient Takes Glucophage: No Diminished Hearing: No Deep Vein Thrombosis: Yes (MULTIPLE LLE; LAST ONE 2014) Endocrine: No Gastrointestinal Disorders: No GERD: No Genitourinary: No Hiatal Hernia: No Hypertension: Yes Immune Disorder: No Inguinal Hernia: Yes Implanted Vascular Access Dvce: Yes Kidney Stones: No Musculoskeletal: Yes (SCIATIC NERVE) Neurologic: No Psychiatric: No Reproductive: No Respiratory: Yes (ASTHMA) Integumentary: Yes (H/O MRSA TO LLE) Immunizations Current: Yes Migraines: No Myocardial Infarction: Yes (X3) Renal Failure: No Seizures: No Ulcer: No Tetanus Vaccination: > 5 Years Influenza Vaccination: No Past Surgical History Abdominal Surgery: No Appendectomy: Yes Body Medical Devices: AKIRA FILTER Cardiac Surgery: Yes Coronary Stent: Yes (X3) Ear Surgery: No Endocrine Surgery: No Eye Surgery: No Genitourinary Surgery: Yes (TESTICULAR CA-REMOVED R) Neurologic Surgery: No Oral Surgery: No Thoracic Surgery: Yes (IVC FILTER) Tonsillectomy: Yes Other Surgery: Yes (IVC FILTER) Social History Alcohol Use: Yes (MODERATELY) Tobacco Use: No Substance Use: No Allergies-Medications (Allergen,Severity, Reaction): Coded Allergies: Penicillins (Verified Allergy, Unknown, 09/08/17) as a child Reported Meds & Prescriptions Reported Meds & Active Scripts Active Flexeril (Cyclobenzaprine HCl) 10 Mg Tab 10 Mg PO TID Ultram (Tramadol HCl) 50 Mg Tab 50 Mg PO Q4H PRN Prednisone (48) 10 mg tab Dose Pack (Prednisone) 10 Mg Dspk 10 Mg PO DIRECTED Reported Warfarin 10 Mg Tab 11 Mg PO DAILY Lisinopril 5 Mg Tab 5 Mg PO DAILY Gabapentin 300 Mg Cap 300 Mg PO TID Atorvastatin (Atorvastatin Calcium) 80 Mg Tab 80 Mg PO HS Review of Systems Except as stated in HPI: all other systems reviewed are Neg Physical Exam Narrative GENERAL: Well-developed well-nourished male appears mildly intoxicated GCS is 15 SKIN: Warm and dry. HEAD: Normocephalic. EYES: No scleral icterus. No injection or drainage. NECK: Supple, trachea midline. No JVD or lymphadenopathy. CARDIOVASCULAR: Regular rate and rhythm without murmurs, gallops, or rubs. RESPIRATORY: Breath sounds equal bilaterally. No accessory muscle use. GASTROINTESTINAL: Abdomen soft, non-tender, nondistended. MUSCULOSKELETAL: No cyanosis, left lower extremity edema which patient reports as chronic. BACK: Nontender without obvious deformity. No CVA tenderness. Data Data Last Documented VS Vital Signs Date Time Temp Pulse Resp B/P (MAP) Pulse Ox O2 Delivery O2 Flow Rate FiO2 09/08/17 23:04 92 22 114/57 (76) 94 Room Air 09/08/17 21:59 98.1 Orders Orders Electrocardiogram (09/08/17 22:12) Basic Metabolic Panel (Bmp) (09/08/17 22:12) Ckmb (Isoenzyme) Profile (09/08/17 22:12) Complete Blood Count With Diff (09/08/17 22:12) Magnesium (Mg) (09/08/17 22:12) Prothrombin Time / Inr (Pt) (09/08/17 22:12) Act Partial Throm Time (Ptt) (09/08/17 22:12) Troponin I (09/08/17 22:12) Chest, Single Ap (09/08/17 22:12) Ecg Monitoring (09/08/17 22:12) Bilateral Bp Monitoring (09/08/17 22:12) Iv Access Insert/Monitor (09/08/17 22:12) Oximetry (09/08/17 22:12) Oxygen Administration (09/08/17 22:12) Sodium Chloride 0.9% Flush (Ns Flush) (09/08/17 22:15) Nitroglycerin Sl (Nitrostat Sl) (09/08/17 22:15) Sodium Chlorid 0.9% 500 Ml Inj (Ns 500 M (09/08/17 22:15) Us Leg Venous Doppler (09/08/17 ) Alcohol (Ethanol) (09/08/17 22:12) CKMB (09/08/17 22:20) CKMB% (09/08/17 22:20) Thiamine Inj (Thiamine Inj) (09/08/17 23:30) Protein Corrected Calcium(Pcc) (09/08/17 23:18) Vital Signs (Adult) Q4H (09/08/17 23:25) Bedside Glucose VERONICA.CSUGAR (09/08/17 23:25) Intake + Output VERONICA.QSHIFT (09/08/17 23:25) Alcohol Withdrawal Asmt-Ciwa Q4HX18 (09/08/17 23:25) ^ Seizure Precautions (09/08/17 23:25) Folic Acid (Folate) (09/09/17 09:00) Thiamine (Vit B1) (Vitamin B1) (09/09/17 09:00) Multivitamins-Minerals Therap (Theragran (09/09/17 09:00) Consult Cm-Etoh Abuse Dc Plan (09/08/17 ) Flumazenil Inj (Romazicon Inj) (09/08/17 23:30) Lorazepam (Ativan) (09/08/17 23:30) Lorazepam Inj (Ativan Inj) (09/08/17 23:30) Lorazepam (Ativan) (09/08/17 23:30) Lorazepam Inj (Ativan Inj) (09/08/17 23:30) Lorazepam Inj (Ativan Inj) (09/08/17 23:30) Lorazepam Inj (Ativan Inj) (09/08/17 23:30) Haloperidol Inj (Haldol Inj) (09/08/17 23:30) Nitroglycerin 2% Oint (Nitroglycerin 2% (09/08/17 23:30) Place In Observation (09/08/17 ) Vital Signs (Adult) Q4H (09/08/17 23:25) Activity Oob With Assistance (09/08/17 23:25) Automation Controls Specialist / Telemetry .CONTINUOUS (09/08/17 23:25) Intake + Output VERONICA.QSHIFT (09/08/17 23:25) Diet Heart Healthy (09/09/17 Breakfast) Sodium Chlor 0.9% 1000 Ml Inj (Ns 1000 M (09/08/17 23:25) Sodium Chloride 0.9% Flush (Ns Flush) (09/08/17 23:30) Sodium Chloride 0.9% Flush (Ns Flush) (09/09/17 09:00) Ondansetron Inj (Zofran Inj) (09/08/17 23:30) Comprehensive Metabolic Panel (09/09/17 06:00) Complete Blood Count With Diff (09/09/17 06:00) Creatine Kinase (Cpk) (09/09/17 06:00) Creatine Kinase (Cpk) (09/09/17 12:00) Troponin I (09/09/17 06:00) Troponin I (09/09/17 12:00) Pharmacologic Contraindication (09/08/17 23:25) Acetaminophen (Tylenol) (09/08/17 23:30) Acetamin-Hydrocod 325-5 Mg (Coulters 5-325 (09/08/17 23:30) Acetamin-Hydrocod 325-10 Mg (Coulters 10-32 (09/08/17 23:30) Docusate Sodium-Senna (Modesta-Colace) (09/09/17 09:00) Magnesium Hydroxide Liq (Milk Of Magnesi (09/08/17 23:30) Sennosides (Senokot) (09/08/17 23:30) Bisacodyl Supp (Dulcolax Supp) (09/08/17 23:30) Lactulose Liq (Lactulose Liq) (09/08/17 23:30) Admit Order (Ed Use Only) (09/08/17 ) Automation Controls Specialist / Telemetry VERONICA.Q8H (09/08/17 23:39) Activity Oob With Assistance (09/08/17 23:39) Notify Dr: Other (09/08/17 23:39) Labs Laboratory Tests Test 09/08/17 22:20 White Blood Count 11.6 TH/MM3 Red Blood Count 3.77 MIL/MM3 Hemoglobin 12.7 GM/DL Hematocrit 36.2 % Mean Corpuscular Volume 96.1 FL Mean Corpuscular Hemoglobin 33.7 PG Mean Corpuscular Hemoglobin Concent 35.1 % Red Cell Distribution Width 13.2 % Platelet Count 197 TH/MM3 Mean Platelet Volume 8.4 FL Neutrophils (%) (Auto) 71.0 % Lymphocytes (%) (Auto) 21.0 % Monocytes (%) (Auto) 5.7 % Eosinophils (%) (Auto) 1.7 % Basophils (%) (Auto) 0.6 % Neutrophils # (Auto) 8.2 TH/MM3 Lymphocytes # (Auto) 2.4 TH/MM3 Monocytes # (Auto) 0.7 TH/MM3 Eosinophils # (Auto) 0.2 TH/MM3 Basophils # (Auto) 0.1 TH/MM3 CBC Comment DIFF FINAL Differential Comment Prothrombin Time 20.4 SEC Prothromb Time International Ratio 2.0 RATIO Activated Partial Thromboplast Time 37.6 SEC Blood Urea Nitrogen 18 MG/DL Creatinine 1.21 MG/DL Random Glucose 105 MG/DL Calcium Level 7.7 MG/DL Magnesium Level 1.9 MG/DL Sodium Level 129 MEQ/L Potassium Level 3.5 MEQ/L Chloride Level 94 MEQ/L Carbon Dioxide Level 19.6 MEQ/L Anion Gap 15 MEQ/L Estimat Glomerular Filtration Rate 62 ML/MIN Total Creatine Kinase 541 U/L Creatine Kinase MB 6.3 NG/ML Creatine Kinase MB % 1.2 % Troponin I LESS THAN 0.02 NG/ML Ethyl Alcohol Level 255 MG/DL MDM Medical Decision Making Medical Screen Exam Complete: Yes Emergency Medical Condition: Yes Medical Record Reviewed: Yes Interpretation(s) EKG normal sinus rhythm rate [address] elevation injury pattern or ectopy noted nonspecific T-wave changes present Last Impressions Chest X-Ray 09/08/17 2212 Signed Impressions: Service Date/Time: Friday, September 08, 2017 22:18 - CONCLUSION: No acute disease. Atif Bermudez MD Lower Extremity Ultrasound 09/08/17 0000 Signed Impressions: Service Date/Time: Friday, September 08, 2017 22:16 - CONCLUSION: Loss of normal deep venous flow in the distal superficial femoral vein and popliteal vein characteristic of DVT. Atif Bermudez MD CBC & BMP Diagram 09/08/17 22:20 Calcium Level 7.7 L, Magnesium Level 1.9 Vital Signs Date Time Temp Pulse Resp B/P (MAP) Pulse Ox O2 Delivery O2 Flow Rate FiO2 09/08/17 23:04 92 22 114/57 (76) 94 Room Air 09/08/17 22:11 98 22 117/64 (81) 94 Room Air 09/08/17 22:03 95 Room Air 09/08/17 21:59 98.1 97 20 117/63 (81) 95 CK total elevated at 541 was elevated CK-MB of 6.3 however MB percent is 1.2 not elevated; troponin I is less than 0.02, not elevated Serum alcohol is elevated at 255 INR is in therapeutic range at 2.0 Differential Diagnosis Chest pain, ACS, UT, PE, pneumonia, pleurisy, esophageal spasm, gastritis, peptic ulcer Narrative Course Patient placed on groundwater monitoring technician and continuous pulse oximetry IV access obtained specimens collected and sent for resulting EKG performed shows sinus rhythm with no acute ST elevation injury pattern or ectopy noted Patient placed on groundwater monitoring technician continuous pulse oximetry additional sublingual nitroglycerin 1 administered Lab values resulted and identified to have serum alcohol of 255 consistent with alcohol intoxication troponin I is less than 0.02 not elevated however CK total is elevated at 5.1 with elevated CK-MB within normal range not elevated MB percent of 1.2% Patient also identified to have therapeutic range INR 2.0 however ultrasound is consistent with DVT of the left lower extremity Patient with mild hyponatremia At this point time patient will be admitted for serial cardiac enzymes adjustment of anticoagulation therapy and gentle monitoring of his serum alcohol and evaluating for alcohol withdrawal as level decreases due to his daily alcohol use. Physician Communication Physician Communication discussed with Dr Walton Diagnosis Primary Impression: Chest pain Additional Impressions: Alcohol ingestion DVT (deep venous thrombosis) Qualified Codes: I82.5Y2 - Chronic embolism and thrombosis of unspecified deep veins of left proximal lower extremity Admitting Information Admitting Physician Requests: Observation Symone Ziegler MD Sep 08, 2017 22:18
--- NOTE | 2017-09-08 22:38 | RADRPT ---
EXAM DATE/TIME: 09/08/2017 22:18 [facility] COMPARISON: CHEST SINGLE AP, May 31, 2017, 21:46. INDICATIONS : Chest pain for one day. MEDICAL HISTORY : Aneurysm, abdominal. Carcinoma, testicular. Asthma. Atrial fibrillation. Myocardial infarction x 3. Coronary artery disease. SURGICAL HISTORY : IVC filter placement. Cardiac stents. Left femur fracture repair. Left rotator cuff repair. ENCOUNTER: Initial ACUITY: 1 day PAIN SCORE: 10/10 LOCATION: Bilateral chest FINDINGS: A single view of the chest demonstrates the lungs to be symmetrically aerated without evidence of mas s, infiltrate or effusion. The cardiomediastinal contours are unremarkable. Osseous structures are intact. CONCLUSION: No acute disease. Atif Bermudez MD on September 08, 2017 at 22:35 Board Certified Radiologist. This report was verified electronically.
[2017-09-08 22:41] LABS: AUTOMATED NEUTROPHIL # 8.2 TH/MM3 (1.8-7.7); BASOPHIL # 0.1 TH/MM3 (0-0.2); BASOPHIL % 0.6 % (0.0-2.0); EOSINOPHIL # 0.2 TH/MM3 (0-0.4); EOSINOPHIL % 1.7 % (0.0-4.0); HEMATOCRIT 36.2 % (39.0-51.0); HEMOGLOBIN 12.7 GM/DL (13.0-17.0); LYMPHOCYTE # 2.4 TH/MM3 (1.0-4.8); MEAN CELL VOLUME 96.1 FL (80.0-100.0); MEAN CORPUSCULAR HEMOGLOBIN 33.7 PG (27.0-34.0); MEAN CORPUSCULAR HGB CONC 35.1 % (32.0-36.0); MEAN PLATELET VOLUME 8.4 FL (7.0-11.0); MONO % 5.7 % (0.0-8.0); MONOCYTE # 0.7 TH/MM3 (0-0.9); PLATELET COUNT 197 TH/MM3 (150-450); RED BLOOD COUNT 3.77 MIL/MM3 (4.50-5.90); RED CELL DISTRIBUTION WIDTH 13.2 % (11.6-17.2); WHITE BLOOD COUNT 11.6 TH/MM3 (4.0-11.0)
--- NOTE | 2017-09-08 22:54 | RADRPT ---
EXAM DATE/TIME: 09/08/2017 22:16 [facility] COMPARISON: US LEG LEFT VENOUS DOPPLER, November 13, 2016, 17:13. INDICATIONS : Left leg swelling. MEDICAL HISTORY : Hypercholesterolemia. Deep venous thrombosis. Hypertension. Myocardial infarction x 3. Coronary arter y disease. Afib. Asthma. Inguinal hernia. Diabetes. Testicular cancer. MRSA. SURGICAL HISTORY : Coronary artery stent. Tonsillectomy. Appendectomy. Right testicle removal. Left femur fracture repai r. Left rotator cuff repair. IVC filter. ENCOUNTER: Subsequent ACUITY: >1 year PAIN SCORE: 5/10 LOCATION: Left leg. TECHNIQUE: Venous ultrasound of the leg was performed from the inguinal ligament to the proximal calf. Real-bebe e, color Doppler and spectral tracing, compression and augmentation techniques were used. FINDINGS: Significant decrease flow is demonstrated in the mid to distal superficial femoral vein, popliteal ve in and proximal infrapopliteal veins. Normal flow and compressibility is identified in the left commo n femoral vein. CONCLUSION: Loss of normal deep venous flow in the distal superficial femoral vein and popliteal vein characteristic of DVT. Atif Bermudez MD on September 08, 2017 at 22:48 Board Certified Radiologist. This report was verified electronically.
[2017-09-08 22:55] LABS: BICARBONATE 19.6 MEQ/L (21.0-32.0); BLOOD UREA NITROGEN 18 MG/DL (7-18); CALCIUM 7.7 MG/DL (8.5-10.1); CHLORIDE 94 MEQ/L (98-107); CREATININE 1.21 MG/DL (0.60-1.30); GLOMERULAR FILTRATION RATE 62 ML/MIN (>89); GLUCOSE,RANDOM 105 MG/DL (74-106); MAGNESIUM 1.9 MG/DL (1.5-2.5); SODIUM (NA) 129 MEQ/L (136-145)
[2017-09-08 22:57] LABS: PROTHROMBIN TIME - PATIENT 20.4 SEC (9.8-11.6)
[2017-09-08 22:59] LABS: TROPONIN I LESS THAN 0.02 NG/ML (0.02-0.05)
[2017-09-08 23:04] VITALS: BP 114/57; PULSE 92; RESP 22; O2SAT 94
--- NOTE | 2017-09-08 23:28 | HHI.HP ---
[facility] Unknown Admission Diagnosis Diagnoses: (1) Chest pain Diagnosis: Principal (2) Rhabdomyolysis Diagnosis: Principal (3) Alcohol abuse Diagnosis: Principal (4) DVT (deep venous thrombosis) Diagnosis: Principal Travel History International Travel<30 Days: No Contact w/Intl Traveler <30 Da: No Traveled to Known Affected Are: No History of Present Illness This is a 56-year-old male with PMH of HTN, Hyperlipidemia, Testicular CA, A-fib , CAD, h/o DVT s/p IVC, on Coumadin and Alcohol Abuse who presented to the ER w / complaints of chest pain. Reports acute onset of substernal chest pain starting earlier today. Pain is 10/10, constant, worse w/ deep breath. Associated w/ SOB. No fever, chills or cough. Denies alleviating or exacerbating factors. On arrival, BP 117/63, HR 97, O2 sat 95% on RA, Afebrile. WBC 11.6. Na 129. CPK 541. Trop negative. EKG w/ no acute changes. INR 2.0. Alcohol 255. CXR no acute findings. Doppler LE positive for DVT. Review of Systems Except as stated in HPI: all other systems reviewed are Neg ROS: 14 point review of systems otherwise negative. Past Family Social History Past Medical History PMH: HTN, Hyperlipidemia, Testicular CA, A-fib, CAD, h/o DVT s/p IVC, on Coumadin and Alcohol Abus Past Surgical History PAST SURGICAL HISTORY: Appendectomy, IVC, Cardiac Stent, Testicular Resection, Tonsillectomy Allergies: Coded Allergies: Penicillins (Verified Allergy, Unknown, 09/08/17) as a child Family History PAST FAMILY HISTORY: Reviewed. No h/o DM or CAD Social History PAST SOCIAL HISTORY: Drinks daily. Negative for tobacco or drugs. Physical Exam Vital Signs Vital Signs Date Time Temp Pulse Resp B/P (MAP) Pulse Ox O2 Delivery O2 Flow Rate FiO2 09/08/17 23:04 92 22 114/57 (76) 94 Room Air 09/08/17 22:11 98 22 117/64 (81) 94 Room Air 09/08/17 22:03 95 Room Air 09/08/17 21:59 98.1 97 20 117/63 (81) 95 Physical Exam PE: GENERAL: Middle-aged male in no acute distress, acutely intoxicated, slurring. HEENT: PERRLA, EOMI. No scleral icterus or conjunctival pallor. No lid lag or facial droop. CARDIOVASCULAR: Regular rate and rhythm. No obvious murmurs to auscultation. No chest tenderness to palpation. RESPIRATORY: No obvious rhonchi or wheezing. Clear to auscultation. Breath sounds equal bilaterally. GASTROINTESTINAL: Abdomen soft, non-tender, nondistended. BS normal. MUSCULOSKELETAL: Extremities without clubbing, cyanosis. LLE edema, chronic per patient. No obvious deformities. NEUROLOGICAL: Awake, alert and oriented x4. No focal neurologic deficits. Moving both upper and lower extremities spontaneously. Laboratory Laboratory Tests Test 09/08/17 22:20 White Blood Count 11.6 Red Blood Count 3.77 Hemoglobin 12.7 Hematocrit 36.2 Mean Corpuscular Volume 96.1 Mean Corpuscular Hemoglobin 33.7 Mean Corpuscular Hemoglobin Concent 35.1 Red Cell Distribution Width 13.2 Platelet Count 197 Mean Platelet Volume 8.4 Neutrophils (%) (Auto) 71.0 Lymphocytes (%) (Auto) 21.0 Monocytes (%) (Auto) 5.7 Eosinophils (%) (Auto) 1.7 Basophils (%) (Auto) 0.6 Neutrophils # (Auto) 8.2 Lymphocytes # (Auto) 2.4 Monocytes # (Auto) 0.7 Eosinophils # (Auto) 0.2 Basophils # (Auto) 0.1 CBC Comment DIFF FINAL Differential Comment Prothrombin Time 20.4 Prothromb Time International Ratio 2.0 Activated Partial Thromboplast Time 37.6 Blood Urea Nitrogen 18 Creatinine 1.21 Random Glucose 105 Calcium Level 7.7 Magnesium Level 1.9 Sodium Level 129 Potassium Level 3.5 Chloride Level 94 Carbon Dioxide Level 19.6 Anion Gap 15 Estimat Glomerular Filtration Rate 62 Total Creatine Kinase 541 Creatine Kinase MB 6.3 Creatine Kinase MB % 1.2 Troponin I LESS THAN 0.02 Ethyl Alcohol Level 255 Result Diagram: 09/08/17221909/08/172219 Caprini VTE Risk Assessment Caprini VTE Risk Assessment: Mod/High Risk (score >= 2) Caprini Risk Assessment Model Point Value = 1 Point Value = 2 Point Value = 3 Point Value = 5 Age 41-60 Minor surgery BMI > 25 kg/m2 Swollen legs Varicose veins or History of unexplained or recurrent spontaneous Oral contraceptives or hormone replacement Sepsis (< 1 month) Serious lung disease, including pneumonia (< 1 month) Abnormal pulmonary function Acute myocardial infarction Congestive heart failure (< 1 month) History of inflammatory bowel disease Medical patient at bed rest Age 61-74 Arthroscopic surgery Major open surgery (> 45 min) Laparoscopic surgery (> 45 min) Malignancy Confined to bed (> 72 hours) Immobilizing plaster cast Central venous access Age >= 75 History of VTE Family history of VTE Factor V Leiden Prothrombin [id number] Lupus anticoagulant Anticardiolipin antibodies Elevated serum homocysteine Heparin-induced thrombocytopenia Other congenital or acquired thrombophilia Stroke (< 1 month) Elective arthroplasty Hip, pelvis, or leg fracture Acute spinal cord injury (< 1 month) Prophylaxis Regimen Total Risk Factor Score Risk Level Prophylaxis Regimen 0-1 Low Early ambulation 2 Moderate Order ONE of the following: *Sequential Compression Device (SCD) *Heparin 5000 units SQ BID 3-4 Higher Order ONE of the following medications: *Heparin 5000 units SQ TID *Enoxaparin/Lovenox 40 mg SQ daily (WT < 150 kg, CrCl > 30 mL/min) *Enoxaparin/Lovenox 30 mg SQ daily (WT < 150 kg, CrCl > 10-29 mL/min) *Enoxaparin/Lovenox 30 mg SQ BID (WT < 150 kg, CrCl > 30 mL/min) AND/OR *Sequential Compression Device (SCD) 5 or more Highest Order ONE of the following medications: *Heparin 5000 units SQ TID (Preferred with Epidurals) *Enoxaparin/Lovenox 40 mg SQ daily (WT < 150 kg, CrCl > 30 mL/min) *Enoxaparin/Lovenox 30 mg SQ daily (WT < 150 kg, CrCl > 10-29 mL/min) *Enoxaparin/Lovenox 30 mg SQ BID (WT < 150 kg, CrCl > 30 mL/min) AND *Sequential Compression Device (SCD) Assessment and Plan Problem List: (1) Chest pain ICD Code: R07.9 - Chest pain Status: Resolved (2) Rhabdomyolysis ICD Code: M62.82 - Rhabdomyolysis (3) DVT (deep venous thrombosis) ICD Code: I82.409 - DVT (deep venous thrombosis) Status: Chronic (4) Alcohol abuse ICD Code: F10.10 - Alcohol abuse, uncomplicated Assessment and Plan A/P: 1. Chest Pain: R/o ACS. Acute onset of substernal chest pain, h/o significant cardiac disease. Initial trop negative, EKG w/ no acute ischemia. Admit for Observation, Telemetry, check serial cardiac enzymes. Resume home anticoagulation, Statin. NTG/Morphine prn as needed. 2. Rhabdomyolysis: CPK 541. IVF for hydration, check serial CPK for trend. 3. DVT: h/o DVT, +LLE edema on exam, Doppler + for DVT. h/o IVC Filter, therapeutic on Coumadin. Check INR in am, resume home Coumadin. 4. Alcohol Abuse: w/ Acute Alcohol Intoxication. Drinks daily, high risk for withdrawal, Seizure Precautions, CIWA, MVT/Thiamine/Folate replacement. 5. DVT Prophylaxis: On Coumadin 6. Social work for d/c planning as needed. 7. Labs/imaging/records reviewed by me, case discussed w/ ER physician at length. Problem Qualifiers (1) DVT (deep venous thrombosis): Qualified Codes: I82.5Y2 - Chronic embolism and thrombosis of unspecified deep veins of left proximal lower extremity Kesha Walton MD Sep 08, 2017 23:28
[2017-09-08] MEDS ORDERED: LORazepam 1 MG TAB PO PRN (23:30)
[2017-09-08] MEDS ORDERED: FLUMAZENIL 0.5 MG/5 ML VIAL IV PUSH PRN (23:30)
[2017-09-08] MEDS ORDERED: BISACODYL 10 MG SUPP RECTAL PRN (23:30)
[2017-09-08] MEDS ORDERED: ACETAMINOPHEN 325 MG TAB PO PRN (23:30)
[2017-09-08] MEDS ORDERED: SODIUM CHLORIDE 0.9% FLUSH 10 ML FLUSH IV FLUSH PRN (23:30)
[2017-09-08] MEDS ORDERED: SENNOSIDES 8.6 MG TAB PO PRN (23:30)
[2017-09-08] MEDS ORDERED: NITROGLYCERIN 2% OINT 1 GM PACKET TOPICAL PRN (23:30)
[2017-09-08] MEDS ORDERED: ACETAMINOPHEN/HYDROcodone 325 MG/10 MG TAB PO PRN (23:30)
[2017-09-08] MEDS ORDERED: MAGNESIUM HYDROXIDE SUSP 30 ML CUP PO PRN (23:30)
[2017-09-08] MEDS ORDERED: LACTULOSE SYRUP 20 GM/30 ML CUP PO PRN (23:30)
[2017-09-08] MEDS ORDERED: LORazepam 2 MG/ML VIAL IV PUSH PRN ×4 (23:30)
[2017-09-08] MEDS ORDERED: ACETAMINOPHEN/HYDROcodone 325 MG/5 MG TAB PO PRN (23:30)
[2017-09-08] MEDS ORDERED: ONDANSETRON HCL 4 MG/2 ML VIAL IVP PRN (23:30)
[2017-09-08] MEDS ORDERED: THIAMINE INJ 100 MG in SODIUM CHLORIDE 0.9% INJ 100 ML IV ONE (23:30)
[2017-09-08] MEDS ORDERED: HALOPERIDOL LACTATE 5 MG/ML AMP IM PRN (23:30)
[2017-09-08] MEDS ORDERED: LORazepam 2 MG TAB PO PRN (23:30)
[2017-09-09] VITALS (7 sets, daily range): BP systolic 119–147; BP diastolic 60–82; PULSE 59–86; RESP 18–20; TEMP 97.4–98.6; O2SAT 96–97
[2017-09-09] MEDS: SODIUM CHLOR 0.9% 1000 ML INJ 1,000 ML IV SCH ×3 (00:16→23:06)
[2017-09-09 04:05] LABS: CALCIUM-PROTEIN CORRECTED 7.5 MG/DL (8.5-10.1); TOTAL PROTEIN 7.7 GM/DL (6.4-8.2)
[2017-09-09 05:18] LABS: AUTOMATED NEUTROPHIL # 3.9 TH/MM3 (1.8-7.7); BASOPHIL % 0.6 % (0.0-2.0); EOSINOPHIL # 0.2 TH/MM3 (0-0.4); HEMATOCRIT 36.2 % (39.0-51.0); HEMOGLOBIN 12.9 GM/DL (13.0-17.0); LYMPHOCYTE # 2.2 TH/MM3 (1.0-4.8); MEAN CELL VOLUME 96.2 FL (80.0-100.0); MEAN CORPUSCULAR HEMOGLOBIN 34.2 PG (27.0-34.0); MEAN CORPUSCULAR HGB CONC 35.5 % (32.0-36.0); MEAN PLATELET VOLUME 8.1 FL (7.0-11.0); MONO % 5.7 % (0.0-8.0); MONOCYTE # 0.4 TH/MM3 (0-0.9); NEUT % 57.7 % (16.0-70.0); PLATELET COUNT 159 TH/MM3 (150-450); RED BLOOD COUNT 3.76 MIL/MM3 (4.50-5.90); WHITE BLOOD COUNT 6.7 TH/MM3 (4.0-11.0)
[2017-09-09 05:20] LABS: INTERNATIONAL NORMALIZED RATIO 2.3 RATIO; PROTHROMBIN TIME - PATIENT 23.4 SEC (9.8-11.6)
[2017-09-09 05:46] LABS: ALBUMIN 3.4 GM/DL (3.4-5.0); ALKALINE PHOSPHATASE 114 U/L (45-117); ALT (GPT) 32 U/L (12-78); AST (GOT) 31 U/L (15-37); BICARBONATE 21.1 MEQ/L (21.0-32.0); BLOOD UREA NITROGEN 15 MG/DL (7-18); CALCIUM 7.8 MG/DL (8.5-10.1); CHLORIDE 103 MEQ/L (98-107); CREATININE 0.89 MG/DL (0.60-1.30); GLOMERULAR FILTRATION RATE 89 ML/MIN (>89); GLUCOSE,RANDOM 93 MG/DL (74-106); SODIUM (NA) 137 MEQ/L (136-145); TOTAL BILIRUBIN ADULT 0.5 MG/DL (0.2-1.0); TOTAL PROTEIN 7.2 GM/DL (6.4-8.2); TROPONIN I LESS THAN 0.02 NG/ML (0.02-0.05)
[2017-09-09] MEDS ORDERED: POTASSIUM CHLORIDE 10 MEQ CONTROLLED RELEASE TAB PO ONE ×2 (08:30→12:00)
--- NOTE | 2017-09-09 08:33 | HHI.PR ---
Subjective Remarks f/u; chest pain/ DVT in no acute distress. has on and off chest paib. no sob. d/w the RN. Objective Vitals Vital Signs Date Time Temp Pulse Resp B/P (MAP) Pulse Ox O2 Delivery O2 Flow Rate FiO2 09/09/17 05:09 98.6 77 18 121/62 (81) 97 09/09/17 02:45 77 09/09/17 01:00 98.0 82 20 132/82 (99) 97 09/09/17 00:28 84 18 119/60 (79) 95 09/08/17 23:04 92 22 114/57 (76) 94 Room Air 09/08/17 22:11 98 22 117/64 (81) 94 Room Air 09/08/17 22:03 95 Room Air 09/08/17 21:59 98.1 97 20 117/63 (81) 95 I/O 09/08/17 09/08/17 09/08/17 09/09/17 09/09/17 09/09/17 07:00 15:00 23:00 07:00 15:00 23:00 Intake Total 601 ml Output Total 1500 ml Balance -899 ml Intake IV Total 601 ml Output Urine Total 1500 ml Result Diagram: 09/09/17 0445 09/09/17 0445 Imaging Last Impressions Chest X-Ray 09/08/172 Signed Impressions: Service Date/Time: Friday, September 08, 2017 22:18 - CONCLUSION: No acute disease. Atif Bermudez MD Lower Extremity Ultrasound 09/08/17 0000 Signed Impressions: Service Date/Time: Friday, September 08, 2017 22:16 - CONCLUSION: Loss of normal deep venous flow in the distal superficial femoral vein and popliteal vein characteristic of DVT. Atif Bermudez MD Objective Remarks GENERAL: This is a well-nourished, well-developed patient, in no apparent distress. CARDIOVASCULAR: Regular rate and regular rhythm without murmurs, gallops, or rubs. RESPIRATORY: Clear to auscultation. Breath sounds equal bilaterally. No wheezes , rales, or rhonchi. GASTROINTESTINAL: Abdomen soft, non-tender, nondistended. Normal, active bowel sounds MUSCULOSKELETAL: left leg is swollen with erythema and warmth. NEURO: Alert & Oriented x4 to person, place, time, situation. Moves all ext x4 Medications and IVs Inpatient Medications Acetaminophen (Tylenol) 650 mg Q6H PRN PO FEVER/PAIN SCALE 1 TO 2; Start at 23:30 Acetaminophen/ Hydrocodone Bitart ([place] 5-325 Mg) 1 tab Q4H PRN PO PAIN SCALE 3 TO 5; Start 09/08/17 at 23:30 Acetaminophen/ Hydrocodone Bitart ([place] 10-325 Mg) 1 tab Q4H PRN PO PAIN SCALE 6 TO 10; Start 09/08/17 at 23:30 Atorvastatin Calcium (Lipitor) 80 mg HS PO ; Start 09/09/17 at 21:00 Bisacodyl (Dulcolax Supp) 10 mg DAILY PRN RECTAL SEVERE CONSITIPATION/ IF NPO; Start 09/08/17 at 23:30 Cyclobenzaprine HCl (Flexeril) 10 mg TID PO ; Start 09/09/17 at 09:00 Flumazenil (Romazicon Inj) 0.2 mg Q1M PRN IV PUSH SEE LABEL COMMENTS; Start 09/08/17 at 23:30 Folic Acid (Folate) 1 mg DAILY PO ; Start 09/09/17 at 09:00; Stop 09/14/17 at 08: 59 Haloperidol Lactate (Haldol Inj) 2 mg Q15M PRN IM SEE LABEL COMMENTS; Start 09/08/17 at 23:30 Lactulose (Lactulose Liq) 30 ml DAILY PRN PO SEVERE CONSITIPATION/ IF PO; Start 09/08/17 at 23:30 Lorazepam (Ativan Inj) 2 mg Q15M PRN IV PUSH CIWA > 20; Start 09/08/17 at 23:30 Lorazepam (Ativan) 2 mg Q2H PRN PO CIWA 11-14; Start 09/08/17 at 23:30 Magnesium Hydroxide (Milk Of Magnesia Liq) 30 ml Q12H PRN PO Mild constipation ; Start 09/08/17 at 23:30 Multivitamins/ Minerals Therapeutic (Theragran M Tab) 1 tab DAILY PO ; Start 09/09/17 at 09:00; Stop 09/14/17 at 08:59 Nitroglycerin (Nitroglycerin 2% Oint) 0.5 inch Q6HR PRN TOPICAL CHEST PAIN; Start 09/08/17 at 23:30 Nitroglycerin (Nitrostat Sl) 0.4 mg ONCE ONCE SL Last administered on at 23:03; Start 09/08/17 at 22:15; Stop 09/08/17 at 22:16; Status DC Ondansetron HCl (Zofran Inj) 4 mg Q6H PRN IVP NAUSEA OR VOMITING; Start at 23:30 Patient Medication Teaching (Coumadin Booklet) 1 ONCE ONCE OTHER ; Start at 16:00; Stop 09/09/17 at 16:01 Senna/Docusate Sodium ([place]-Colace) 1 tab BID PO ; Start 09/09/17 at 09:00 Sennosides (Senokot) 17.2 mg Q12H PRN PO Moderate constipation; Start 09/08/17 at 23:30 Sodium Chloride (NS Flush) 2 ml BID IV FLUSH ; Start 09/09/17 at 09:00 Thiamine HCl (Vitamin B1) 100 mg DAILY PO ; Start 09/09/17 at 09:00 Thiamine HCl 100 mg/Sodium Chloride 101 ml @ 101 mls/hr ONCE ONCE IV Last administered on 09/08/17at 23:30; Start 09/08/17 at 23:30; Stop 09/09/17 at 00:29; Status DC Warfarin Sodium (Coumadin) 1 mg DAILY@1600 PO ; Start 09/09/17 at 16:00 A/P Problem List: (1) Chest pain ICD Code: R07.9 - Chest pain Status: Resolved (2) Rhabdomyolysis ICD Code: M62.82 - Rhabdomyolysis (3) DVT (deep venous thrombosis) ICD Code: I82.409 - DVT (deep venous thrombosis) Status: Chronic (4) Alcohol abuse ICD Code: F10.10 - Alcohol abuse, uncomplicated Assessment and Plan A/P 1. Chest Pain will trend the cardiac enzymes- check CTA chest to r/o PE- Resume home anticoagulation, Statin. NTG/Morphine prn as needed. 2. Rhabdomyolysis: continue IVF for hydration, check serial CPK for trend. 3. DVT: h/o DVT, +LLE edema on exam, Doppler + for DVT. h/o IVC Filter, therapeutic on Coumadin. will consult hematology. 4. Alcohol Abuse: w/ Acute Alcohol Intoxication. Drinks daily, high risk for withdrawal, Seizure Precautions, CIWA, MVT/Thiamine/Folate replacement. 5.hypokalemia; will replace. 6. DVT Prophylaxis: On Coumadin Problem Qualifiers (1) DVT (deep venous thrombosis): Qualified Codes: I82.5Y2 - Chronic embolism and thrombosis of unspecified deep veins of left proximal lower extremity Brooke Avendaño MD Sep 09, 2017 08:33
[2017-09-09] MEDS: SODIUM CHLORIDE 0.9% FLUSH 10 ML FLUSH IV FLUSH SCH ×2 (09:00→23:00)
[2017-09-09] MEDS ORDERED: IOHEXOL 350 MG/ML 10 ML VIAL (for RAD DIAG) IVCONTRAST ONE (09:25)
--- NOTE | 2017-09-09 09:38 | RADRPT ---
EXAM DATE/TIME: 09/09/2017 09:19 [place] COMPARISON: CT PULMONARY ANGIOGRAM, January 09, 2016, 0:00. INDICATIONS : Chest pain and cough today. IV CONTRAST: 94 cc Omnipaque 350 (iohexol) IV RADIATION DOSE: 25.29 CTDIvol (mGy) ; Patient body habitus MEDICAL HISTORY : Hypertension. Carcinoma, testicular. SURGICAL HISTORY : Tonsillectomy. ENCOUNTER: Initial ACUITY: 1 day PAIN SCALE: 5/10 LOCATION: Bilateral chest TECHNIQUE: Volumetric scanning of the chest was performed using a pulmonary embolism protocol MIP images were re constructed. Using automated exposure control and adjustment of the mA and/or kV according to patien t size, radiation dose was kept as low as reasonably achievable to obtain optimal diagnostic quality images. DICOM format image data is available electronically for review and comparison. Follow-up recommendations for detected pulmonary nodules are based at a minimum on nodule size and pa tient risk factors according to Fleischner Society Guidelines. FINDINGS: PULMONARY ARTERIES: No filling defects are seen in the pulmonary arteries through the segmental level. LUNGS: There is no consolidation or pneumothorax . No concerning pulmonary nodule is visualized. PLEURAE: There is no pleural thickening or pleural effusion. MEDIASTINUM: There is good visualization of the great vessels of the middle mediastinum. No evidence of mediastin al or hilar adenopathy/mass. Mild cardiomegaly is noted. MUSCULOSKELETAL: Degenerative changes and scoliosis of the thoracic spine are noted. MISCELLANEOUS: The visualized upper abdominal organs demonstrate no acute abnormality. CONCLUSION: 1. No evidence of pulmonary embolism. 2. Mild cardiomegaly. 3. Degenerative changes and scoliosis of the thoracic spine. Michael Cohen MD on September 09, 2017 at 9:34 Board Certified Radiologist. This report was verified electronically.
[2017-09-09] MEDS: CYCLOBENZAPRINE HCL 10 MG TAB PO SCH ×3 (11:58→18:43)
[2017-09-09] MEDS: MULTIVITAMINS/MINERALS THERAPEUTIC TAB PO SCH (12:07)
[2017-09-09] MEDS: FOLIC ACID 1 MG TAB PO SCH (12:07)
[2017-09-09] MEDS: THIAMINE HCL 100 MG TAB PO SCH (12:07)
[2017-09-09] MEDS: DOCUSATE SODIUM 50 MG/SENNA 8.6 MG TAB PO SCH ×2 (12:07→21:00)
--- NOTE | 2017-09-09 13:42 | EKG ---
Date Performed: 09/08/2017 Time Performed: 22:03:14 PTAGE: 56 years EKG: Sinus rhythm NONSPECIFIC T-WAVE ABNORMALITY BORDERLINE ECG Compared to PREVIOUS TRACING , T-wave changes have improved slightly. PREVIOUS TRACIN05/31/2017 22 .47 DOCTOR: Francis Hernandez Interpretating Date/Time 09/09/2017 13:41:14
--- NOTE | 2017-09-09 13:46 | MB ---
cc: LAITH NEVILLE MD DATE OF CONSULTATION: 09/09/2017. REASON FOR CONSULTATION: Patient with left lower extremity thrombosis involving the left superficial femoral vein as well as the left popliteal vein. PRIMARY CARE PHYSICIANS: [facility]. REQUESTING PHYSICIAN: Consultation requested by the Hospitalist Service. CURRENT TREATMENT: The patient is on anticoagulation with warfarin, though his adherence to warfarin is not known, he tells me he has not been regularly following with anybody for adjustment of his doses of warfarin. CHIEF COMPLAINT: Mr. Cardona reports having run out of his antihypertensive medications as well as his nitroglycerin for management of heart disease some months ago. He reports developing left left-sided chest pain yesterday while he was helping a friend at work. He came into the emergency department for further workup and management of the chest pain. Additionally, he reports having increased swelling in his left leg over the past few weeks. HISTORY OF PRESENT ILLNESS: Mr. Cardona is a pleasant 56-year-old male who is originally from [place]. He presently lives at home alone. He has been disabled since 2000 after he broke his left femur after a major injury / fall. The patient reports his difficulties with the lower extremity deep venous thromboses started after he underwent open reduction internal fixation of the left femur fracture. He tells me at his first postop visit two weeks after his surgery, he passed out in the orthopedic surgeon's office in [place] and was sent into the emergency department. He was at that time diagnosed with pulmonary emboli as well as a left lower extremity deep venous thrombosis. An IVC filter was placed at that time. This IVC filter remains in place. Ever since then, Mr. Cardona has been on various oral anticoagulants including Xarelto, Plavix as well as warfarin. He tells me he has been advised lifelong anticoagulation. Most recently, [facility] had been monitoring his PT, PTT and INRs while on warfarin, but he tells me he has not followed up with that practice in many months. Mr. Cardona also has a history of testicular cancer. He tells me he underwent orchiectomy in [place] in 1999 and since then has been in remission supposedly. He tells me he did not have the type of cancer which required chemotherapy or radiation. The hematology service has been asked to see Mr. Cardona because ultrasound Doppler studies of his left leg performed on 09/08/2017 indicate venous thrombosis involving the superficial femoral vein as well as the popliteal vein on the left side. PAST MEDICAL HISTORY: 1. Testicular cancer in 1999. 2. Coronary artery disease with myocardial infarctions in 2009, 2011 and 2012. 3. Atrial fibrillation. 4. Deep venous thrombosis and pulmonary emboli diagnosed in 2000. The lower extremity deep venous thromboses have been recurrent ever since. PAST SURGICAL HISTORY: 1. Hernia repair. 2. Shoulder surgery. 3. Orchiectomy. 4. Open reduction internal fixation of complicated fracture of the left femur. 5. [place] IVC filter placement. 6. Left knee surgery / incision and drainage in 2008 for MRSA infection. SOCIAL HISTORY: The patient is single. He lives at home alone. He denies tobaccoism. He reports drinking almost daily. 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 FAMILY HISTORY: He denies any oncologic diagnosis that he is aware of. ALLERGIES: PENICILLIN. CURRENT INPATIENT MEDICATIONS: 1. Normal saline 100 cc/hour. 2. Thiamine 100 milligrams IV x1. 3. Hydrocodone / acetaminophen 10 / 325 one tablet every four hours. 4. Atorvastatin 80 milligrams p.o. at bedtime. 5. Flexeril 10 milligrams p.o. three times a day as needed for muscle spasm. 6. Colace / senna one tablet p.o. twice a day. 7. Flumazenil 0.2 milligrams IV as needed. 8. Folic acid 1 milligrams p.o. daily. 9. He is on a [facility] protocol for lorazepam and Haldol. 10. A multivitamin daily. 11. Nitroglycerin patch q. 6 hours. 12. Zofran 4 milligrams IV q. 6 hours as needed for nausea and vomiting. 13. Potassium replacement protocol. 14. Warfarin 10 milligrams p.o. daily. REVIEW OF SYSTEMS: A thirteen point review of systems was obtained and the following are the pertinent positives and negatives. CONSTITUTIONAL: The patient reports fatigue, denies fevers, chills or night sweats. HEAD, EYES, EARS, NOSE, THROAT: Denies headaches, blurry vision, difficulty swallowing or soreness in the throat. He denies epistaxis. RESPIRATORY: Denies difficulty breathing, cough or hemoptysis. Denies pleuritic chest pain. CARDIOVASCULAR: Reports angina-like chest pain in the left parasternal area with exertion. He denies palpitations. He reports chronic lower extremity edema on the left side. GI: Denies difficulty swallowing soreness of throat, nausea, vomiting, diarrhea hematochezia, melena, abdominal distension or jaundice. : No complaints. 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 SKIN: He reports having ulcers associated with swelling in his left leg. PHYSICAL EXAMINATION: VITAL SIGNS: Temperature 97.9 degrees Fahrenheit, heart rate 79 beats a minute, respiratory 20, blood pressure 147/81, O2 sats 96% on room air. GENERAL PHYSICAL APPEARANCE: Mr. Cardona is a middle-aged male. He is sitting up in bed. He appears to be no acute distress. He has a lino complexion and appears to be somewhat disheveled. HEAD, EYES, EARS, NOSE, THROAT: Head atraumatic, normocephalic. Conjunctivae are non-pale. The sclerae are nonicteric. Extraocular muscles intact. Pupils equal, round and reactive to light and accommodation. ORAL EXAM: No pharyngeal erythema. NECK EXAM: No palpable cervical or supraclavicular lymphadenopathy. He does have an obese neck. RESPIRATORY EXAM: Good air movement bilaterally. No added breath sounds. CARDIOVASCULAR EXAM: Regular rate and rhythm. S1, S2. No obvious murmurs, rubs or gallops. ABDOMINAL EXAM: Protuberant belly. The abdomen is soft, nontender and nondistended. No palpable hepatosplenomegaly. Positive bowel sounds. LOWER EXTREMITIES: He has muscular legs. The right lower extremity is without measurable edema or tenderness. Left lower extremity - his left thigh is of increased diameter when compared to the right. His left calf also is of increased diameter when compared to the right. He has chronic discoloration and chronic venous stasis changes of the left leg with some ulceration distally. There is no obvious tenderness noted. 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 LABORATORY FINDINGS: Blood work dated 09/09/2017: WBC count 6.7, hemoglobin 12.9 gm/dL, hematocrit 36.2%, platelet count is 159,000, absolute neutrophil count is 3.9. Chemistries: Sodium is 137, potassium is 3, chloride is 103, bicarb 21, creatinine is 0.89, BUN 15. EGFR 89, calcium 7.8. Creatine kinase elevated at 656, CK-MB is elevated 12.9, troponin-I less than 0.2. Albumin 3.4. IMAGING STUDIES: CT angiogram dated 09/09/2017 indicates no evidence of pulmonary embolism. Mild cardiomegaly. Degenerate changes and scoliosis of the thoracic spine. Ultrasound Doppler studies of the left lower extremity indicate loss of normal deep venous flow in the distal superficial femoral vein and popliteal vein characteristic of deep venous thrombosis. ASSESSMENT: Mr. Cardona is a 56-year-old male with a history of a traumatic injury and fracture of the left femur in 2000. He underwent open reduction internal fixation at that time and about two weeks after surgery developed a left lower extremity deep venous thrombosis associated with pulmonary embolus. He underwent IVC filter placement at that time and has since then been on and off anticoagulation. He tells me at various times over the past seventeen years, he has had recurrent deep venous thrombosis in the left leg. He is not certain if he has had any episodes of recurrent pulmonary emboli. He had been advised lifelong anticoagulation and for the past several months has been on warfarin, though he denies following with any provider for titration of the warfarin. He tells me he also has had days where he misses his warfarin dosing. The patient reports developing chest pain on and off over the past many years. He tells me the chest pain had been increasing in frequency over the past few weeks because he ran out of his antihypertensives as well as his oral nitrite pills. He came into the emergency room for the for management of chest pain. He is currently undergoing cardiac evaluation for possible acute coronary syndrome in the clinical decision-making unit. On examination he was noted to have a swollen left lower extremity, and an ultrasound Doppler study revealed a chronic-appearing deep venous thrombosis involving the left leg. RECOMMENDATIONS: 1. Lower extremity deep venous thrombosis involving the left leg: I would recommend continuing therapeutic anticoagulation with warfarin. He will require outpatient followup to assess his PT/PTT and INR and to advise on dose adjustments. Even though the patient had a therapeutic INR of 2.4 during this hospitalization, it is not known if he has maintained therapeutic anticoagulation in the outpatient setting since the patient admittedly has not had routine follow-up or blood work testing done. He also tells me he is not sure if he takes his warfarin every day. I suspect the provoking factors for recurrent deep venous thrombosis is his history of trauma to the left leg requiring surgery as well as the IVC filter he has in place. The IVC filter which has been in place since 2000 would be permanent at this point due to the long duration of its implantation. RECOMMENDATIONS 1. I would recommend outpatient follow up with the hematology clinic in the future for close monitoring of his PT, PTT, INR. 2. I would also had some point in the future like him to undergo repeat ultrasound Doppler studies of the left leg to assess for resolution / improvement of the clot burden. MD LUCAS Tirado/WILLY /12:52 PM /1:10 PM
[2017-09-09 14:37] LABS: TROPONIN I LESS THAN 0.02 NG/ML (0.02-0.05)
[2017-09-09] MEDS ORDERED: WARFARIN SOD 1 MG TAB PO SCH (16:00)
[2017-09-09] MEDS ORDERED: WARFARIN SOD 10 MG TAB PO SCH ×2 (16:00)
[2017-09-09] MEDS ORDERED: ATORVASTATIN 80 MG TAB PO SCH (21:00)
[2017-09-10] VITALS: BP 124/77; PULSE 79; RESP 18; TEMP 98.2; O2SAT 95
[2017-09-10 05:45] VITALS: BP 128/84; PULSE 69; RESP 18; TEMP 97.7; O2SAT 96
[2017-09-10 07:02] LABS: INTERNATIONAL NORMALIZED RATIO 2.4 RATIO; PROTHROMBIN TIME - PATIENT 24.6 SEC (9.8-11.6)
[2017-09-10 07:45] LABS: BICARBONATE 26.3 MEQ/L (21.0-32.0); CALCIUM 7.9 MG/DL (8.5-10.1); CREATININE 0.66 MG/DL (0.60-1.30)
[2017-09-10 08:42] VITALS: BP 156/83; PULSE 74; RESP 18; TEMP 97; O2SAT 96
[2017-09-10] MEDS ORDERED: THERM PO (09:02)
[2017-09-10] MEDS ORDERED: FOLI1TAB6 PO (09:02)
[2017-09-10] MEDS ORDERED: THIA100 PO (09:02)
[2017-09-10] MEDS ORDERED: WARF-22 PO (09:02)
--- NOTE | 2017-09-10 09:02 | HHI.PR ---
Subjective Remarks in no acute distress. denies chest pain or sob. no new complaints and wants to go home today. Objective Vitals Vital Signs Date Time Temp Pulse Resp B/P (MAP) Pulse Ox O2 Delivery O2 Flow Rate FiO2 09/10/17 08:42 97.0 74 18 156/83 (107) 96 09/10/17 05:45 97.7 69 18 128/84 (99) 96 09/10/17 00:00 98.2 79 18 124/77 (93) 95 09/09/17 15:00 85 09/09/17 14:29 97.4 86 20 137/76 (96) 96 I/O 09/09/17 09/09/17 09/09/17 09/10/17 09/10/17 09/10/17 07:00 15:00 23:00 07:00 15:00 23:00 Intake Total 601 ml 810 ml 1320 ml Output Total 1500 ml 400 ml 850 ml Balance -899 ml 810 ml 920 ml -850 ml Intake Oral 1320 ml IV Total 601 ml 810 ml Output Urine Total 1500 ml 400 ml 850 ml Result Diagram: 09/09/17 0445 09/10/17 [address] Angiography 09/09/17 0000 Signed Impressions: Service Date/Time: Saturday, September 09, 2017 09:19 - CONCLUSION: 1. No evidence of pulmonary embolism. 2. Mild cardiomegaly. 3. Degenerative changes and scoliosis of the thoracic spine. Michael Cohen MD Chest X-Ray 09/08/17 2212 Signed Impressions: Service Date/Time: Friday, September 08, 2017 22:18 - CONCLUSION: No acute disease. Atif Bermudez MD Lower Extremity Ultrasound 09/08/17 0000 Signed Impressions: Service Date/Time: Friday, September 08, 2017 22:16 - CONCLUSION: Loss of normal deep venous flow in the distal superficial femoral vein and popliteal vein characteristic of DVT. Atif Bermudez MD Objective Remarks GENERAL: This is a well-nourished, well-developed patient, in no apparent distress. CARDIOVASCULAR: Regular rate and regular rhythm without murmurs, gallops, or rubs. RESPIRATORY: Clear to auscultation. Breath sounds equal bilaterally. No wheezes , rales, or rhonchi. GASTROINTESTINAL: Abdomen soft, non-tender, nondistended. Normal, active bowel sounds MUSCULOSKELETAL: left leg is swollen with erythema and warmth. NEURO: Alert & Oriented x4 to person, place, time, situation. Moves all ext x4 Medications and IVs Inpatient Medications Acetaminophen (Tylenol) 650 mg Q6H PRN PO FEVER/PAIN SCALE 1 TO 2; Start at 23:30 Acetaminophen/ Hydrocodone Bitart ([place] 5-325 Mg) 1 tab Q4H PRN PO PAIN SCALE 3 TO 5; Start 09/08/17 at 23:30 Acetaminophen/ Hydrocodone Bitart ([place] 10-325 Mg) 1 tab Q4H PRN PO PAIN SCALE 6 TO 10; Start 09/08/17 at 23:30 Atorvastatin Calcium (Lipitor) 80 mg HS PO Last administered on 09/09/17at 23:00 ; Start 09/09/17 at 21:00 Bisacodyl (Dulcolax Supp) 10 mg DAILY PRN RECTAL SEVERE CONSITIPATION/ IF NPO; Start 09/08/17 at 23:30 Cyclobenzaprine HCl (Flexeril) 10 mg TID PO Last administered on 09/09/17at 18:43 ; Start 09/09/17 at 09:00 Flumazenil (Romazicon Inj) 0.2 mg Q1M PRN IV PUSH SEE LABEL COMMENTS; Start 09/08/17 at 23:30 Folic Acid (Folate) 1 mg DAILY PO Last administered on 09/09/17at 12:07; Start at 09:00; Stop 09/14/17 at 08:59 Haloperidol Lactate (Haldol Inj) 2 mg Q15M PRN IM SEE LABEL COMMENTS; Start 09/08/17 at 23:30 Lactulose (Lactulose Liq) 30 ml DAILY PRN PO SEVERE CONSITIPATION/ IF PO; Start 09/08/17 at 23:30 Lorazepam (Ativan Inj) 2 mg Q15M PRN IV PUSH CIWA > 20; Start 09/08/17 at 23:30 Lorazepam (Ativan) 2 mg Q2H PRN PO CIWA 11-14; Start 09/08/17 at 23:30 Magnesium Hydroxide (Milk Of Magnesia Liq) 30 ml Q12H PRN PO Mild constipation ; Start 09/08/17 at 23:30 Multivitamins/ Minerals Therapeutic (Theragran M Tab) 1 tab DAILY PO Last administered on 09/09/17at 12:07; Start 09/09/17 at 09:00; Stop 09/14/17 at 08:59 Nitroglycerin (Nitroglycerin 2% Oint) 0.5 inch Q6HR PRN TOPICAL CHEST PAIN; Start 09/08/17 at 23:30 Nitroglycerin (Nitrostat Sl) 0.4 mg ONCE ONCE SL Last administered on at 23:03; Start 09/08/17 at 22:15; Stop 09/08/17 at 22:16; Status DC Ondansetron HCl (Zofran Inj) 4 mg Q6H PRN IVP NAUSEA OR VOMITING; Start at 23:30 Patient Medication Teaching (Coumadin Booklet) 1 ONCE ONCE OTHER ; Start at 16:00; Stop 09/09/17 at 16:01; Status DC Potassium Chloride (KCl) 30 meq ONCE ONCE PO Last administered on 09/09/17at 15: 34; Start 09/09/17 at 12:00; Stop 09/09/17 at 12:01; Status DC Senna/Docusate Sodium ([place]-Colace) 1 tab BID PO Last administered on 09/09/17at 12:07; Start 09/09/17 at 09:00 Sennosides (Senokot) 17.2 mg Q12H PRN PO Moderate constipation; Start 09/08/17 at 23:30 Sodium Chloride (NS Flush) 2 ml BID IV FLUSH Last administered on 09/09/17at 23: 00; Start 09/09/17 at 09:00 Thiamine HCl (Vitamin B1) 100 mg DAILY PO Last administered on 09/09/17at 12:07; Start 09/09/17 at 09:00 Thiamine HCl 100 mg/Sodium Chloride 101 ml @ 101 mls/hr ONCE ONCE IV Last administered on 09/08/17at 23:30; Start 09/08/17 at 23:30; Stop 09/09/17 at 00:29; Status DC Warfarin Sodium (Coumadin) 1 mg DAILY@1600 PO Last administered on 09/09/17at 15: 49; Start 09/09/17 at 16:00 A/P Problem List: (1) Chest pain ICD Code: R07.9 - Chest pain Status: Resolved (2) Rhabdomyolysis ICD Code: M62.82 - Rhabdomyolysis (3) DVT (deep venous thrombosis) ICD Code: I82.409 - DVT (deep venous thrombosis) Status: Chronic (4) Alcohol abuse ICD Code: F10.10 - Alcohol abuse, uncomplicated Assessment and Plan A/P 1. Chest Pain serial enzymes negative- CTA chest negative for PE. Resumed home anticoagulation, Statin. NTG/Morphine prn as needed. 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 2. Rhabdomyolysis: improving- 3. DVT: h/o DVT, +LLE edema on exam, Doppler + for DVT. h/o IVC Filter, therapeutic on Coumadin. hematology consult appreciated and recommended that coumadin to be continued with f/u with hematology clinic for INR monitoring. venous doppler of the leg as outpatient. 4. Alcohol Abuse: w/ Acute Alcohol Intoxication. Drinks daily, high risk for withdrawal, Seizure Precautions, CIWA, MVT/Thiamine/Folate replacement. 5.hypokalemia; replaced. 6. DVT Prophylaxis: On Coumadin Problem Qualifiers (1) DVT (deep venous thrombosis): Qualified Codes: I82.5Y2 - Chronic embolism and thrombosis of unspecified deep veins of left proximal lower extremity Brooke Avendaño MD Sep 10, 2017 09:02
[2017-09-10] MEDS: THIAMINE HCL 100 MG TAB PO SCH (09:05)
[2017-09-10] MEDS: MULTIVITAMINS/MINERALS THERAPEUTIC TAB PO SCH (09:05)
[2017-09-10] MEDS: FOLIC ACID 1 MG TAB PO SCH (09:05)
[2017-09-10] MEDS: CYCLOBENZAPRINE HCL 10 MG TAB PO SCH (09:05)
[2017-09-10] MEDS: SODIUM CHLORIDE 0.9% FLUSH 10 ML FLUSH IV FLUSH SCH (09:06)
[2017-09-10] MEDS: DOCUSATE SODIUM 50 MG/SENNA 8.6 MG TAB PO SCH (09:07)
--- NOTE | 2017-09-10 09:09 | HHI.DCPOC ---
Discharge Care Plan Diagnosis: (1) Chest pain (2) Alcohol ingestion (3) Rhabdomyolysis (4) Anticoagulated on Coumadin (5) DVT (deep venous thrombosis) (6) Alcohol abuse (7) Hypokalemia Goals to Promote Your Health * To prevent worsening of your condition and complications * To maintain your health at the optimal level Directions to Meet Your Goals Strongly recommend to stop drinking alcohol Keep close follow up with primary care physician and/or hematology for monitoring of PT, PTT and INR. You will need re-imaging of the left lower extremity to evaluate for clot resolution. Take your medications as prescribed Follow your dietary instruction Follow activity as directed Keep your appointments as scheduled Take your immunizations and boosters as scheduled If your symptoms worsen call your PCP, if no PCP go to Urgent Care Center or Emergency Room Smoking is Dangerous to Your Health. Avoid second hand smoke Call the 24-hour hour crisis hotline for domestic abuse at Cathy Welch Sep 10, 2017 09:09
== END 2017-09-10 09:42 | disposition home or self-care (01) ==
LOC: NEPC 21:54 → NEDA 23:41 → NEPFCDU 09-09 00:55
PROVIDERS: ADMIT Internal Medicine; ATTEND Internal Medicine
DX: R07.9 Chest pain, unspecified (principal); M62.82 Rhabdomyolysis; I25.10 Atherosclerotic heart disease of native coronary artery without angina pectoris; I10 Essential (primary) hypertension; E87.6 Hypokalemia; I82.402 Acute embolism and thrombosis of unspecified deep veins of left lower extremity; F10.129 Alcohol abuse with intoxication, unspecified; I48.91 Unspecified atrial fibrillation; I26.99 Other pulmonary embolism without acute cor pulmonale; E87.1 Hypo-osmolality and hyponatremia; E78.5 Hyperlipidemia, unspecified; E78.00 Pure hypercholesterolemia, unspecified; E11.9 Type 2 diabetes mellitus without complications; I25.2 Old myocardial infarction; J45.909 Unspecified asthma, uncomplicated; Z79.01 Long term (current) use of anticoagulants; Z79.84 Long term (current) use of oral hypoglycemic drugs; Z95.5 Presence of coronary angioplasty implant and graft; Z85.47 Personal history of malignant neoplasm of testis; Z86.14 Personal history of Methicillin resistant Staphylococcus aureus infection
CPT/HCPCS: 71045; 71275; 80048; 80053; 80307; 82550; 82552; 82948; 83735; 84155; 84484; 85025; 85610; 85730; 93005; 93971; 96361; 96365; 99285; G0378; J3411; J7030; J7040; Q9967

== ENCOUNTER 2018-02-04 16:16 | Emergency (ER) | payer OTHER, MEDICAID ==
[~2018-02-04] VITALS: Ht 172.7 cm; Wt 123.0 kg
[~2018-02-04 16:16] MED LIST changes: +FOLI1TAB6 PO; -PRED10PA2 PO; +THERM PO; +THIA100 PO
[2018-02-04 17:21] VITALS: BP 165/85; PULSE 99; RESP 20; TEMP 98.3; O2SAT 95
[2018-02-04 18:09] VITALS: BP 150/84; PULSE 76; RESP 18; O2SAT 98
[2018-02-04 18:11] VITALS: BP 150/84; PULSE 78; RESP 18; O2SAT 99
--- NOTE | 2018-02-04 18:13 | PD ---
HPI Chief Complaint: Pain: Acute or Chronic Time Seen by Provider: 18:04 Travel History International Travel<30 days: No Contact w/Intl Traveler<30days: No Traveled to known affect area: No History of Present Illness HPI 57-year-old male with history of CAD, A. 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 Patient states that since Sunday he has noticed some groin and thigh pain. He feels like the left lower extremity is more swollen than usual. He tells me it is always swollen but appears a little bit bigger and the pigmentation seems a little bit darker. He denies any new injury. No fever chills. No chest pain or tightness. No difficulty breathing. Patient has no other symptoms to report at this time. PFSH Past Medical History Hx Anticoagulant Therapy: Yes Arthritis: No Asthma: Yes ( A CHILD) Atrial Fibrillation: Yes Anxiety: No Depression: No Heart Rhythm Problems: Yes (AFIB) Cancer: Yes (TESTICULAR) Cardiac Catheterization: Yes Cardiovascular Problems: Yes (HTN) High Cholesterol: Yes Chemotherapy: No Chest Pain: Yes Congestive Heart Failure: No Cerebrovascular Accident: No Coronary Artery Disease: Yes Diminished Hearing: No Deep Vein Thrombosis: Yes (MULTIPLE LLE; LAST ONE 2014) Endocrine: No Gastrointestinal Disorders: No GERD: No Genitourinary: No Hiatal Hernia: No Hypertension: Yes Immune Disorder: No Inguinal Hernia: Yes Implanted Vascular Access Dvce: Yes Kidney Stones: No Musculoskeletal: Yes (SCIATIC NERVE) Neurologic: No Psychiatric: No Reproductive: No Respiratory: Yes (ASTHMA) Integumentary: Yes (H/O MRSA TO LLE) Immunizations Current: Yes Migraines: No Myocardial Infarction: Yes (X3) Renal Failure: No Seizures: No Ulcer: No Past Surgical History Abdominal Surgery: No Appendectomy: Yes Body Medical Devices: AKIRA FILTER Cardiac Surgery: Yes Coronary Stent: Yes (X3) Ear Surgery: No Endocrine Surgery: No Eye Surgery: No Genitourinary Surgery: Yes (TESTICULAR CA-REMOVED R) Neurologic Surgery: No Oral Surgery: No Thoracic Surgery: Yes (IVC FILTER) Tonsillectomy: Yes Other Surgery: Yes (IVC FILTER) Social History Alcohol Use: Yes (MODERATELY) Tobacco Use: No Substance Use: No Allergies-Medications (Allergen,Severity, Reaction): Coded Allergies: Penicillins (Verified Allergy, Unknown, 02/04/18) as a child Reported Meds & Prescriptions Reported Meds & Active Scripts Active Thera M Plus (Multivitamins/Minerals Therapeutic) 1 Tab 1 Tab PO DAILY Warfarin 10 Mg Tab 11 Mg PO DAILY Reported Metoprolol Tartrate 25 Mg Tab 25 Mg PO BID Lisinopril 5 Mg Tab 5 Mg PO DAILY Gabapentin 300 Mg Cap 300 Mg PO TID Atorvastatin (Atorvastatin Calcium) 80 Mg Tab 80 Mg PO HS Review of Systems Except as stated in HPI: all other systems reviewed are Neg Physical Exam Narrative GENERAL: Well-nourished male patient, in no acute distress SKIN: Focused skin assessment warm/dry. HEAD: Atraumatic. Normocephalic. EYES: Pupils equal and round. No scleral icterus. No injection or drainage. ENT: No nasal bleeding or discharge. Mucous membranes pink and moist. NECK: Trachea midline. No JVD. CARDIOVASCULAR: Elevated rate and irregular rhythm.. No murmur appreciated. RESPIRATORY: No accessory muscle use. Diminished, possibly due to girth to auscultation. Breath sounds equal bilaterally. GASTROINTESTINAL: Abdomen rotund, soft, nondistended. Active bowel sounds. No rebound tenderness.. Hepatic and splenic margins not palpable. MUSCULOSKELETAL: No obvious deformities. No clubbing. No cyanosis. Hyperpigmentation with mild erythema of the left distal lower extremity distal to the knee. There is 2+ edema of the left distal lower extremity. It is nonpitting. Distal pulses are palpable. Cap refills within normal limits. NEUROLOGICAL: Awake and alert. No obvious cranial nerve deficits. Motor grossly within normal limits. Normal speech. PSYCHIATRIC: Appropriate mood and affect; insight and judgment normal. Data Data Last Documented VS Vital Signs Date Time Temp Pulse Resp B/P (MAP) Pulse Ox O2 Delivery O2 Flow Rate FiO2 02/04/18 18:11 78 18 150/84 (106) 99 Room Air 02/04/18 17:21 98.3 Orders Orders Electrocardiogram (02/04/18 17:25) Comprehensive Metabolic Panel (02/04/18 17:25) Complete Blood Count With Diff (02/04/18 17:25) Act Partial Throm Time (Ptt) (02/04/18 17:25) Prothrombin Time / Inr (Pt) (02/04/18 17:25) Us Leg Venous Doppler (02/04/18 ) Ed Discharge Order (02/04/18 19:52) Labs Laboratory Tests Test 02/04/18 18:10 White Blood Count 5.9 TH/MM3 Red Blood Count 3.89 MIL/MM3 Hemoglobin 12.9 GM/DL Hematocrit 37.8 % Mean Corpuscular Volume 97.1 FL Mean Corpuscular Hemoglobin 33.2 PG Mean Corpuscular Hemoglobin Concent 34.2 % Red Cell Distribution Width 14.0 % Platelet Count 182 TH/MM3 Mean Platelet Volume 9.0 FL Neutrophils (%) (Auto) 67.8 % Lymphocytes (%) (Auto) 21.7 % Monocytes (%) (Auto) 6.6 % Eosinophils (%) (Auto) 3.1 % Basophils (%) (Auto) 0.8 % Neutrophils # (Auto) 4.0 TH/MM3 Lymphocytes # (Auto) 1.3 TH/MM3 Monocytes # (Auto) 0.4 TH/MM3 Eosinophils # (Auto) 0.2 TH/MM3 Basophils # (Auto) 0.0 TH/MM3 CBC Comment DIFF FINAL Differential Comment Prothrombin Time 12.4 SEC Prothromb Time International Ratio 1.2 RATIO Activated Partial Thromboplast Time 24.9 SEC Blood Urea Nitrogen 9 MG/DL Creatinine 1.08 MG/DL Random Glucose 107 MG/DL Total Protein 7.6 GM/DL Albumin 3.6 GM/DL Calcium Level 8.6 MG/DL Alkaline Phosphatase 124 U/L Aspartate Amino Transf (AST/SGOT) 33 U/L Alanine Aminotransferase (ALT/SGPT) 44 U/L Total Bilirubin 0.4 MG/DL Sodium Level 138 MEQ/L Potassium Level 3.9 MEQ/L Chloride Level 104 MEQ/L Carbon Dioxide Level 23.4 MEQ/L Anion Gap 11 MEQ/L Estimat Glomerular Filtration Rate 71 ML/MIN [facility] Medical Decision Making Medical Screen Exam Complete: Yes Emergency Medical Condition: Yes Medical Record Reviewed: Yes Differential Diagnosis DVT versus cellulitis versus PAD versus PVD Narrative Course 57-year-old male presents emergency department for evaluation of left lower extremity pain and edema. Patient appears without distress. He does have a left lower extremity that is larger than the right which she states is chronic for him but it seems to be larger. There is a mild erythema associated with it. Ultrasound is negative for DVT. Lab work is without acute concern however patient is subtherapeutic on his Coumadin with INR of 1.2. Patient is encouraged to follow-up with primary care provider. He will be started on oral antibiotics for possible cellulitis. He is encouraged to return immediately with any acute worsening symptoms. Diagnosis Primary Impression: Left leg cellulitis Additional Impression: Subtherapeutic anticoagulation Referrals: [facility] Primary Care Physician Patient Instructions: General Instructions Additional Instructions: Elevate the affected extremity Follow-up with a primary care provider Return immediately with acute worsening symptoms Med/Other Pt SpecificInfo: Prescription(s) given Scripts Cephalexin (Keflex) 500 Mg Cap 500 MG PO Q6H for Infection for 5 Days, #20 CAP 0 Refills Prov: Yareli Jackson 02/04/18 Disposition: 01 DISCHARGE HOME Condition: Stable Yareli Jackson Feb 04, 2018 18:13
[2018-02-04] MEDS ORDERED: METO25TA3 PO (18:14)
[2018-02-04 18:50] LABS: BASOPHIL % 0.8 % (0.0-2.0); EOSINOPHIL # 0.2 TH/MM3 (0-0.4); EOSINOPHIL % 3.1 % (0.0-4.0); HEMATOCRIT 37.8 % (39.0-51.0); HEMOGLOBIN 12.9 GM/DL (13.0-17.0); LYMPH % 21.7 % (9.0-44.0); LYMPHOCYTE # 1.3 TH/MM3 (1.0-4.8); MEAN CELL VOLUME 97.1 FL (80.0-100.0); MEAN CORPUSCULAR HEMOGLOBIN 33.2 PG (27.0-34.0); MEAN CORPUSCULAR HGB CONC 34.2 % (32.0-36.0); MONO % 6.6 % (0.0-8.0); MONOCYTE # 0.4 TH/MM3 (0-0.9); NEUT % 67.8 % (16.0-70.0); PLATELET COUNT 182 TH/MM3 (150-450); RED BLOOD COUNT 3.89 MIL/MM3 (4.50-5.90); WHITE BLOOD COUNT 5.9 TH/MM3 (4.0-11.0)
[2018-02-04 19:03] LABS: INTERNATIONAL NORMALIZED RATIO 1.2 RATIO; PROTHROMBIN TIME - PATIENT 12.4 SEC (9.8-11.6)
[2018-02-04 19:15] LABS: ALBUMIN 3.6 GM/DL (3.4-5.0); ALT (GPT) 44 U/L (12-78); AST (GOT) 33 U/L (15-37); BICARBONATE 23.4 MEQ/L (21.0-32.0); BLOOD UREA NITROGEN 9 MG/DL (7-18); CALCIUM 8.6 MG/DL (8.5-10.1); CHLORIDE 104 MEQ/L (98-107); CREATININE 1.08 MG/DL (0.60-1.30); GLOMERULAR FILTRATION RATE 71 ML/MIN (>89); GLUCOSE,RANDOM 107 MG/DL (74-106); SODIUM (NA) 138 MEQ/L (136-145)
[2018-02-04 19:18] LABS: ALKALINE PHOSPHATASE 124 U/L (45-117); TOTAL BILIRUBIN ADULT 0.4 MG/DL (0.2-1.0); TOTAL PROTEIN 7.6 GM/DL (6.4-8.2)
--- NOTE | 2018-02-04 19:44 | RADRPT ---
EXAM DATE: 02/04/2018 7:13 PM EDT AGE/SEX: 57 years / Male INDICATIONS: Left lower extremity edema. CLINICAL DATA: This is the patient's subsequent encounter. Patient reports that signs and symptoms h ave been present for > 1 year and indicates a pain score of 2/10. MEDICAL/SURGICAL HISTORY: Carcinoma, testicular. Hypertension. Hypercholesterolemia. Anticoa gulant Therapy. Atrial Fibrillation. Coronary Artery Disease. Deep Vein Thrombosis. Inguinal Janis ia. Myocardial Infarction. Appendectomy. Coronary artery stent. Tonsillectomy. Drums filter . Testicular cancer removal. COMPARISON: [facility] [place]G LEFT VENOUS DOPPLER, 09/08/2017. . TECHNIQUE: Venous ultrasound of both lower extremities was performed from the inguinal ligament to t he proximal calf. Real-time, color Doppler and spectral tracing, compression and augmentation techni ques were used. FINDINGS: There is normal compressibility of the deep venous system from the inguinal region to the proximal ca lf. No echogenic clot is seen in the lumen of the common femoral, femoral, popliteal, and posterior tibial veins. There is a normal response of the venous system to proximal and distal augmentation an d respiration. CONCLUSION: 1. Negative for deep venous thrombosis. Electronically signed by: Jann Keith MD 02/04/2018 7:43 PM EDT
[2018-02-04] MEDS ORDERED: CEPH-460 PO (19:58)
--- NOTE | 2018-02-05 15:48 | EKG ---
Date Performed: 02/04/2018 Time Performed: 17:44:52 PTAGE: 57 years EKG: Sinus rhythm WITH SINUS ARRHYTHMIA NORMAL ECG Since the PREVIOUS TRACING , no significant change noted PREVIOUS TRACIN09/08/2017 22.03 DOCTOR: Amira tSroud Interpretating Date/Time 02/05/2018 15:48:02
== END 2018-02-04 20:30 | disposition home or self-care (01) ==
LOC: NEPE 16:16
DX: L03.116 Cellulitis of left lower limb (principal); R79.1 Abnormal coagulation profile; E78.00 Pure hypercholesterolemia, unspecified; I10 Essential (primary) hypertension; I48.91 Unspecified atrial fibrillation; Z79.01 Long term (current) use of anticoagulants; Z86.718 Personal history of other venous thrombosis and embolism
CPT/HCPCS: 80053; 85025; 85610; 85730; 93005; 93971; 99285